=== PATIENT | female | born 1955 | race African-American/Black ===

== ENCOUNTER 2017-01-07 12:32 | Emergency (ER) | payer OTHER ==
--- NOTE | 2017-01-07 12:48 | DR.GENAD ---
HPI - PCP Primary Care Physician: fan - HPI Comment HPI Comment: HAVING PROBLEM AMBULATING DUE TO PAIN. - Complaint/Symptoms Chief Complaint Doctors Comments: RIGHT KNEE PAIN AND BODY ACHES FOR FEW DAYS. WORSE TODAY. HERE VIA EMS. TOOK HOME MEDS BUT NOT HELPING. NO TRAUMA. HISTORY ARTHRITIS. Chief Complaint:: patient stated she called ems due to chills, body aches, and right knee pain for several days Self Treatment fo Chief Complaint: dr turner stated she had arthritis - Nurses notes reviewed Nurses Notes Review: Yes - Source History Provided: Patient - Mode of Arrival Mode of Arrival: EMS - Timing Onset of Chief Complaint: 01/04/17 Came on: Suddenly - Duration Duration: Constant Duration: Days - Severity Severity: Moderate PMH - PMH Past Medical History: Yes Past Medical History: Arthritis, Asthma, Diabetes, Hypertension Past Surgical History: Yes Surgical History: Cholecystectomy, Hysterectomy, Ortho Surgery - Family History History of Family Medical Conditions: Yes Family Medical History: Heart Failure, Hypertension - Social History Does patient currently use any type of tobacco product: Yes Have you used tobacco products in the last 12 months: Yes Type of Tobacco Use: Cigarettes How many years tobacco product used: 30 Does any household member use tobacco: No Alcohol Use: None Do you use any recreational Drugs:: No Lives With: Family Lives Where: Home - infectious screening In the last 2 months have you had wt loss of >10#?: NO Have you had fever, night sweats or hemotysis?: No Have you traveled outside the country in the last 6 months?: No Isolation: Standard ROS - Review of Systems Constitutional: No Symptoms Reported Eyes: No Symptoms Reported ENTM: No Symptoms Reported Respiratoy: No Symptoms Reported Cardiovascular: No Symptoms Reported Gastrointestinal/Abdominal: No Symptoms Reported Genitourinary: No Symptoms Reported Neurological: Problems Walking Musculoskeletal: Back Pain, Joint Pain, Joint Swelling, Muscle Pain, Right, Knee Integumentary: No Symptoms Reported Hematologic/Lymphatic: No Symptoms Reported Endocrine: No Symptoms Reported All Other Systems: Reviewed and Negative PE - Vital Signs Vitals: Temperature 97.9 F Pulse Rate 82 Respiratory Rate 16 Blood Pressure [Left Arm] 154/75 Blood Pressure [Right Arm] 152/78 Blood Pressure 100/68 O2 Sat by Pulse Oximetry 100 - General Limitations: No Limitations General Appearance: Alert - Head Head Exam: Normal Inspection - Eyes Eye exam: Normal Appearance - ENT ENT Exam: Normal External Ear Exam External Ear Exam: Normal External Inspection TM/Canal Exam: Bilateral Normal Nose Exam: Nasal Deviation Throat Exam: Normal Inspection - Neck Neck Exam: Normal Inspection - Chest Chest Inspection: Symmetric Chest Wall Rise - Respiratory Respiratory Exam: Normal Lung Sounds Bilat Respiratory Exam: Bilateral Clear to Auscultation - Cardiovascular Cardiovascular Exam: Regular Rate, Normal Rhythm, Normal Heart Sounds - Abdominal Exam Abdominal Exam: Normal Bowel Sounds, Soft. negative: Tenderness - Extremities Extremities Exam: Tenderness (RIGHT KNEE), Joint Swelling (RIGHT KNEE) - Back Back Exam: Paraspinal Tenderness - Neurologic Neurological Exam: Alert, Oriented X3 - Skin Skin Exam: Normal Color MDM - Differential Diagnosis Differential Diagnosis: RIGHT KNEE PAIN, ARTHRITIS, STRAIN, SPRAIN, FRACTURE Course - Treatment Treatment: SEE ORDERS - Reevaluation 1st: Improved (IMPROVE WITH IM PAIN MEDS.) - Education/Counseling Education/Counseling: Patient, Education Educated On: Treatment, Diagnosis, Needs for Follow Up ROR - XRAY XRAY Interpreted by: Radiologist XRAY Findings: REPORT DISCUSS WITH PATIENT. - Diagnosis Discharge Problem: Arthritis Right knee pain Qualifiers: Chronicity: acute Qualified Code(s): M25.561 - Pain in right knee Degenerative arthritis Qualifiers: Osteoarthritis location: multiple joints Osteoarthritis type: unspecified Qualified Code(s): M15.9 - Polyosteoarthritis, unspecified - Discharge Plan Disposition: 01 HOME, SELF-CARE Condition: Stable Prescriptions: Tramadol HCl 50 mg PO Q8H PRN #15 tab PRN Reason: Pain - Follow ups/Referrals Follow ups/Referrals: Ky TURNER [Primary Care Provider] - 3 days - Instructions Instructions: Knee Pain, [id number], Arthritis Additional Instructions: RETURN TO ED IF WORSE.
[2017-01-07] MEDS ORDERED: NORFLEX INJ IM ONE (12:49)
[2017-01-07] MEDS ORDERED: ZOFRAN INJ 4 MG VIAL IVP ONE (12:50)
[2017-01-07] MEDS ORDERED: MORPHINE SULFATE INJ 4 MG IVP ONE (12:50)
[2017-01-07] MEDS ORDERED: ZOFRAN INJ 4 MG VIAL ONE (12:55)
[2017-01-07] MEDS ORDERED: MORPHINE SULFATE INJ 4 MG ONE (12:56)
[2017-01-07] MEDS ORDERED: NORFLEX INJ ONE (12:56)
[2017-01-07 13:13] VITALS: BP 100/68; BMI 26.1
--- NOTE | 2017-01-07 14:55 | RAD ---
HISTORY: Right knee pain. Complete radiographic series of the right knee joint. Findings: Examination of the knee joint demonstrate no evidence for acute fracture or dislocation. The medial and lateral tibiofemoral compartments demonstrate moderate to severe joint space narrowing and oste ophyte formation; most severe in the medial knee compartment. The findings are compatible with moder ate to severe degenerative joint disease. The lateral radiograph demonstrates trace suprapatellar j oint fluid. Patellofemoral compartment also shows moderate to severe DJD with chondromalacia isabelleell a. There is mild soft tissue swelling about the knee joint without underlying bony injury or fractur e seen. No destructive lytic bony lesions are seen. IMPRESSION: Moderate to severe right knee joint tricompartmental osteoarthritis, most severe medially, with adva nced central chondromalacia patella. No evidence for an acute fracture, subluxation, or lytic bony l esion. Trace knee joint fluid. Meniscal chondrocalcinosis. Reported By:
== END 2017-01-07 14:49 | disposition home or self-care (01) ==
LOC: ER 12:32
DX: M19.90 Unspecified osteoarthritis, unspecified site (principal); M25.561 Pain in right knee; M15.9 Polyosteoarthritis, unspecified
CPT/HCPCS: 73560; 96365; 96372; 96374; 96375; 99282; 99283; J2270; J2360; J2405

== ENCOUNTER 2017-02-19 13:14 | Emergency (ER) | payer OTHER ==
[2017-02-19 13:29] VITALS: BP 137/74; BMI 26.6
--- NOTE | 2017-02-19 13:46 | DR.GENAD ---
HPI - PCP Primary Care Physician: fan Gonzalez HPI Comment HPI Comment: PAIN AND SWELLING STARTED YESTERDAY. NO FEVER. WORSE TODAY. - Complaint/Symptoms Chief Complaint Doctors Comments: RIGHT FACIAL SWELLING AND PAIN. UPPER RIGHT GUM IS HURTING. Chief Complaint:: right side of face swollen since yesterday "maybe a bad tooth " - Nurses notes reviewed Nurses Notes Review: Yes - Source History Provided: Patient - Mode of Arrival Mode of Arrival: Ambulatory - Timing Onset of Chief Complaint: 02/18/17 Came on: Suddenly - Duration Duration: Constant Duration: Days - Severity Severity: Moderate PMH - PMH Past Medical History: Yes Past Medical History: Arthritis, Asthma, Diabetes, Hypertension Past Surgical History: Yes Surgical History: Cholecystectomy, Hysterectomy, Ortho Surgery - Family History History of Family Medical Conditions: Yes Family Medical History: Heart Failure, Hypertension - Social History Does patient currently use any type of tobacco product: Yes Have you used tobacco products in the last 12 months: Yes Type of Tobacco Use: Cigarettes How many years tobacco product used: 20 Does any household member use tobacco: No Alcohol Use: None Do you use any recreational Drugs:: No Lives With: Family Lives Where: Home - infectious screening In the last 2 months have you had wt loss of >10#?: NO Have you had fever, night sweats or hemotysis?: No Have you traveled outside the country in the last 6 months?: No Isolation: Standard ROS - Review of Systems Constitutional: Weakness. negative: Chills, Fever Eyes: No Symptoms Reported. negative: Eye Pain, Discharge ENTM: No Symptoms Reported, Mouth Pain, Mouth Swelling (RIGHT FACE SWELLING.). negative: Ear Pain, Nose Discharge, Nose Congestion Respiratoy: No Symptoms Reported. negative: Productive Cough, Non-Productive Cough, Short of Breath, Wheezing, Hemoptysis Cardiovascular: No Symptoms Reported. negative: Chest Pain Gastrointestinal/Abdominal: No Symptoms Reported. negative: Abdominal Pain, Diarrhea, Nausea, Vomiting Genitourinary: No Symptoms Reported. negative: Dysuria, Frequency, Hematuria Neurological: Headache, Weakness. negative: Dizziness Musculoskeletal: Other (RIGHT FACE PAIN AND SWELLING.) Integumentary: Other (RIGHT FACE SWELLING AND REDNESS) Hematologic/Lymphatic: Easy Bruising Endocrine: No Symptoms Reported All Other Systems: Reviewed and Negative PE - Vital Signs Vitals: Temperature 98.6 F Pulse Rate 87 Respiratory Rate 18 Blood Pressure [Left Arm] 154/75 Blood Pressure [Right Arm] 152/78 Blood Pressure 137/74 O2 Sat by Pulse Oximetry 100 - General Limitations: No Limitations General Appearance: Alert - Head Head Exam: Other (RIGHT FACE SWOLLEN, RED AND TENDER.) - Eyes Eye exam: Normal Appearance, PERRL, EOMI. negative: Scleral Icterus, Conjunctival Injection, Periorbital Swelling, Periorbital Tenderness - ENT ENT Exam: Normal External Ear Exam External Ear Exam: Normal External Inspection TM/Canal Exam: Bilateral Normal Nose Exam: Sinus Tenderness (RIGHT MAXILLAR SINUS TENDER.) Mouth Exam: Other (RIGHT UPPER GUM INFLAME. MULTIPLE CARIES. ). negative: Trismus Throat Exam: Normal Inspection - Neck Neck Exam: Trachea Midline. negative: Tenderness, Meningismus, Lymphadenopathy - Chest Chest Inspection: Symmetric Chest Wall Rise - Respiratory Respiratory Exam: Normal Lung Sounds Bilat Respiratory Exam: Bilateral Clear to Auscultation - Cardiovascular Cardiovascular Exam: Regular Rate, Normal Rhythm, Normal Heart Sounds - Abdominal Exam Abdominal Exam: Normal Bowel Sounds, Soft. negative: Tenderness - Extremities Extremities Exam: Normal Inspection - Back Back Exam: Normal Inspection - Neurologic Neurological Exam: Alert, Oriented X3 - Psychiatric Psychiatric Exam: Normal Affect, Normal Mood - Skin Skin Exam: Erythema MDM - Differential Diagnosis Differential Diagnosis: RT FACIAL CELLULITIS, RT MAXILLARY SINUSITIS, GINGIVITIS Course - Treatment Treatment: SEE ORDERS.IM TORADOL AND ROCEPHINE IN ED. - Reevaluation 1st: Improved (PAIN DECREASING.) - Education/Counseling Education/Counseling: Patient, Education Educated On: Treatment, Diagnosis, Needs for Follow Up - Diagnosis Discharge Problem: Facial cellulitis, Gingivitis Maxillary sinusitis Qualifiers: Chronicity: acute Recurrence: not specified as recurrent Qualified Code(s): J01.00 - Acute maxillary sinusitis, unspecified - Discharge Plan Disposition: HOME, SELF-CARE Condition: Stable Prescriptions: Amoxicillin [Amoxil 875 mg] 875 mg PO BID #20 tab Tramadol HCl 50 mg PO Q8H PRN #15 tab PRN Reason: Pain - Follow ups/Referrals Follow ups/Referrals: Ky TURNER [Primary Care Provider] - 2 days - Instructions Instructions: Cellulitis, Sinusitis, Adult, Gingivitis, [id number] Additional Instructions: RETURN TO ED IF WORSE.
[2017-02-19] MEDS ORDERED: ROCEPHIN VIAL 1 GM IM ONE (13:47)
[2017-02-19] MEDS ORDERED: TORADOL 60 MG VIAL IM ONE (13:47)
[2017-02-19] MEDS ORDERED: ROCEPHIN VIAL 1 GM ONE (14:04)
[2017-02-19] MEDS ORDERED: TORADOL 60 MG VIAL ONE (14:04)
[2017-02-19] MEDS ORDERED: XYLOCAINE 1 % (PLAIN) ONE (14:05)
== END 2017-02-19 14:34 | disposition home or self-care (01) ==
LOC: ER 13:22
DX: L03.211 Cellulitis of face (principal); J01.80 Other acute sinusitis; K05.10 Chronic gingivitis, plaque induced
CPT/HCPCS: 96372; 99282; J0696; J1885; J2001

== ENCOUNTER 2017-03-06 14:19 | Emergency (ER) | payer OTHER ==
[2017-03-06 14:23] VITALS: BMI 33.7
--- NOTE | 2017-03-06 15:45 | DR.GENAD ---
HPI - PCP Primary Care Physician: Niya - HPI Comment HPI Comment: HAPPEN BEFORE COMING TO ED. HAVING LEFT HIP PAIN AND HEADACHE. DENIES CHEST PAIN. NO FEVER. - Complaint/Symptoms Chief Complaint Doctors Comments: FELL ON KITCHING FLOOR AFTER SHE BLACK OUT. Chief Complaint:: Pt states she fell in the kitchen after blacking out and is c/ o right hip pain - Nurses notes reviewed Nurses Notes Review: Yes - Source History Provided: Patient - Mode of Arrival Mode of Arrival: Wheelchair - Timing Onset of Chief Complaint: 03/06/17 Came on: Suddenly - Duration Duration: Constant Duration: Minutes - Severity Severity: Moderate PMH - PMH Past Medical History: Yes Past Medical History: Arthritis, Asthma, Diabetes, Hypertension Past Surgical History: Yes Surgical History: Cholecystectomy, Hysterectomy, Ortho Surgery - Family History History of Family Medical Conditions: Yes Family Medical History: Heart Failure, Hypertension - Social History Does patient currently use any type of tobacco product: Yes Have you used tobacco products in the last 12 months: Yes Type of Tobacco Use: Cigarettes Does any household member use tobacco: Yes Alcohol Use: None Do you use any recreational Drugs:: No Lives With: Family Lives Where: Home - infectious screening In the last 2 months have you had wt loss of >10#?: NO Have you had fever, night sweats or hemotysis?: No Have you traveled outside the country in the last 6 months?: No Isolation: Standard ROS - Review of Systems Constitutional: Weakness, Fatigue. negative: Chills, Fever, Loss of Appetite Eyes: Blurred Vision. negative: Eye Pain, Discharge, Photophobia, Diplopia ENTM: No Symptoms Reported. negative: Ear Pain, Nose Discharge, Nose Congestion , Throat Pain Respiratoy: No Symptoms Reported. negative: Productive Cough, Non-Productive Cough, Short of Breath, Wheezing, Hemoptysis Cardiovascular: Syncope. negative: Chest Pain, Edema, Palpitations Gastrointestinal/Abdominal: No Symptoms Reported. negative: Abdominal Pain, Constipation, Diarrhea, Nausea Genitourinary: No Symptoms Reported. negative: Dysuria, Frequency, Hematuria Neurological: Headache, Weakness, Dizziness Musculoskeletal: Muscle Pain Integumentary: No Symptoms Reported Endocrine: negative: Increased Thirst, Increased Urine Psychiatric: Hallucinations All Other Systems: Reviewed and Negative PE - Vital Signs Vitals: Temperature 98.1 F Pulse Rate [Left Brachial] 85 Pulse Rate 91 Respiratory Rate 18 Blood Pressure [Left Arm] 137/80 Blood Pressure [Right Arm] 152/78 Blood Pressure 93/63 O2 Sat by Pulse Oximetry 99 - General Limitations: No Limitations General Appearance: Alert - Head Head Exam: Normal Inspection - Eyes Eye exam: Normal Appearance - ENT ENT Exam: Normal External Ear Exam External Ear Exam: Normal External Inspection TM/Canal Exam: Bilateral Normal Nose Exam: Normal Nose Exam Mouth Exam: Normal Inspection Throat Exam: Normal Inspection - Neck Neck Exam: Trachea Midline. negative: Tenderness, Meningismus, Lymphadenopathy - Chest Chest Inspection: Symmetric Chest Wall Rise - Respiratory Respiratory Exam: negative: Chest Wall Tenderness, Respiratory Distress Respiratory Exam: Bilateral Rhonchi, Lower Rhonchi - Cardiovascular Cardiovascular Exam: Regular Rate, Normal Rhythm, Normal Heart Sounds - Abdominal Exam Abdominal Exam: Normal Bowel Sounds, Soft - Extremities Extremities Exam: Tenderness (RIGHT HIP TENDER.) - Neurologic Neurological Exam: Alert, Oriented X3 - Psychiatric Psychiatric Exam: Normal Affect, Normal Mood - Skin Skin Exam: Normal Color MDM - Additional Information Additional Information Obtained From: Family - Differential Diagnosis Differential Diagnosis: SYNCOPAL EPISODE, RIGHT HIP PAIN Course - Treatment Treatment: SEE ORDERS - Education/Counseling Education/Counseling: Patient, Family, Education Educated On: Diagnosis, Needs for Follow Up ROR - Labs Reviewed Laboratory Results Reviewed?: Yes Result Diagrams: 03/06/17 15:55 03/06/17 15:55 Laboratory: WBC 5.3 X10^3/uL (3.6-10.0) 03/06/17 15:55 RBC 3.91 X10^6/uL (3.5-5.4) 03/06/17 15:55 Hgb 12.3 g/dL (12.0-16.0) 03/06/17 15:55 Hct 37.0 % (36.0-47.0) 03/06/17 15:55 MCV 94.8 fL (80.0-100.0) 03/06/17 15:55 MCH 31.5 pg (27.0-34.0) 03/06/17 15:55 MCHC 33.2 g/dL (33.0-35.0) 03/06/17 15:55 RDW 13.7 % (11.6-16.5) 03/06/17 15:55 Plt Count 314 X10^3/uL (150.0-450.0) 03/06/17 15:55 MPV 9.0 fL (7.4-11.0) 03/06/17 15:55 Neut % 36.8 % (42.0-75.0) L 03/06/17 15:55 Lymph % 51.9 % (21.0-51.0) H 03/06/17 15:55 Cloud % 6.1 % (0.0-13.0) 03/06/17 15:55 Eos % 4.4 % (0.9-2.9) H 03/06/17 15:55 Baso % 0.8 % (0.2-1.0) 03/06/17 15:55 Neut # 1.9 x10^3/uL (2.2-4.8) L 03/06/17 15:55 Lymph # 2.7 X10^3/uL (1.3-2.9) 03/06/17 15:55 Cloud # 0.3 x10^3/uL (0.3-0.8) 03/06/17 15:55 Eos # 0.2 x10^3/uL (0.0-0.2) 03/06/17 15:55 Baso # 0.0 X10^3/uL (0.0-0.1) 03/06/17 15:55 Absolute Nucleated RBC 0.1 /100WBC 03/06/17 15:55 Sodium 142 mmol/L (136-145) 03/06/17 15:55 Corrected Sodium TNP 03/06/17 15:55 Potassium 3.5 mmol/L (3.5-5.1) 03/06/17 15:55 Chloride 106 mmol/L (98-107) 03/06/17 15:55 Carbon Dioxide 23.7 mmol/L (21-32) 03/06/17 15:55 BUN 20 mg/dL (7-18) H 03/06/17 15:55 Creatinine 1.83 mg/dL (0.55-1.02) H 03/06/17 15:55 Est GFR (MDRD) Af Amer 36 (>60) L 03/06/17 15:55 Est GFR (MDRD) Non-Af 30 (>60) L 03/06/17 15:55 Glucose 80 mg/dL (65-99) 03/06/17 15:55 Calcium 9.3 mg/dL (8.5-10.1) 03/06/17 15:55 Corrected Calcium TNP 03/06/17 15:55 Total Bilirubin 0.20 mg/dL (0.2-1.0) 03/06/17 15:55 AST 18 Units/L (15-37) 03/06/17 15:55 ALT 25 Units/L (12-78) 03/06/17 15:55 Alkaline Phosphatase 49 Units/L (46-116) 03/06/17 15:55 Creatine Kinase 54 Units/L (26-192) 03/06/17 15:55 CK-MB (CK-2) < 1.0 ng/mL (0-4.0) 03/06/17 15:55 CK/CKMB % Calc 1.9 % (<4) 03/06/17 15:55 Troponin I < 0.02 ng/mL (0-1.5) 03/06/17 15:55 Total Protein 8.3 g/dL (6.4-8.2) H 03/06/17 15:55 Albumin 4.0 g/dL (3.4-5.0) 03/06/17 15:55 Globulin 4.3 g/dL (2.5-4.5) 03/06/17 15:55 Albumin/Globulin Ratio 0.9 Ratio (1.1-2.1) L 03/06/17 15:55 Specimen Type Clean catch urine 03/06/17 16:47 Urine Color Yellow (YELLOW) 03/06/17 16:47 Urine Appearance Slightly hazy (CLEAR) 03/06/17 16:47 Urine pH 6.0 (5.0 - 8.0) 03/06/17 16:47 Ur Specific [place] 1.015 (1.000-1.030) 03/06/17 16:47 Urine Protein 2+ (NEGATIVE) 03/06/17 16:47 Urine Glucose (UA) Negative (NEGATIVE) 03/06/17 16:47 Urine Ketones Negative (NEGATIVE) 03/06/17 16:47 Urine Occult Blood 1+ (NEGATIVE) 03/06/17 16:47 Urine Nitrite Negative (NEGATIVE) 03/06/17 16:47 Urine Bilirubin Negative (NEGATIVE) 05/22/17 16:47 Urine Urobilinogen Normal (NORMAL) 03/06/17 16:47 Ur Leukocyte Esterase Negative (NEGATIVE) 03/06/17 16:47 Urine RBC Rare /HPF (NEGATIVE) 03/06/17 16:47 Urine WBC 0-2 /HPF (NEGATIVE) 03/06/17 16:47 Ur Squamous Epith Cells Moderate /HPF (NEGATIVE) 03/06/17 16:47 Ur Renal Epithelial Cell Few /HPF (NEGATIVE) 03/06/17 16:47 Urine Bacteria Trace /HPF (NEGATIVE) 03/06/17 16:47 Hyaline Casts Few /LPF (NEGATIVE) 03/06/17 16:47 Fine Granular Casts Few /LPF (NEGATIVE) 03/06/17 16:47 Ur Culture Indicated? No/not indicated 03/06/17 16:47 Urine Opiates Screen Positive (NEG=<300) A 03/06/17 16:47 Urine Methadone Screen Negative (NEG=<300) 03/06/17 16:47 Ur Barbiturates Screen Negative (NEG=<200) 03/06/17 16:47 Ur Phencyclidine Scrn Negative (NEG=<25) 03/06/17 16:47 Ur Amphetamines Screen Negative (NEG=<1000) 03/06/17 16:47 U Benzodiazepines Scrn Negative (NEG=<200) 03/06/17 16:47 Urine Cocaine Screen Negative (NEG=<300) 03/06/17 16:47 U Marijuana (THC) Screen Negative (NEG=<50) 03/06/17 16:47 - XRAY XRAY Interpreted by: Radiologist XRAY Findings: REPORT DISCUSS WITH PATIENT. - EKG Rhythm: NSR (EKG NOTED) - Diagnosis Discharge Problem: Right hip pain Syncopal episodes Qualifiers: Syncope type: unspecified Qualified Code(s): R55 - Syncope and collapse - Discharge Plan Condition: Stable - Follow ups/Referrals Follow ups/Referrals: Ky TURNER [Primary Care Provider] - 3 days - Instructions Instructions: Syncope, [id number], Hip Pain Additional Instructions: RETURN TO ED IF WORSE. CONTINUE WITH MEDS AT HOME FOR PAIN.
[2017-03-06 16:10] LABS: BASOPHILS % (AUTO) 0.8 % (0.2-1.0); EOSINOPHILS # (AUTO) 0.2 x10^3/uL (0.0-0.2); EOSINOPHILS % (AUTO) 4.4 % (0.9-2.9); HEMOGLOBIN 12.3 g/dL (12.0-16.0); LYMPHOCYTES # (AUTO) 2.7 X10^3/uL (1.3-2.9); LYMPHOCYTES % (AUTO) 51.9 % (21.0-51.0); MEAN CORPUSCULAR HEMOGLOBIN 31.5 pg (27.0-34.0); MEAN CORPUSCULAR HGB CONC 33.2 g/dL (33.0-35.0); MEAN CORPUSCULAR VOLUME 94.8 fL (80.0-100.0); MONOCYTES # (AUTO) 0.3 x10^3/uL (0.3-0.8); MONOCYTES % (AUTO) 6.1 % (0.0-13.0); NEUTROPHILS # (AUTO) 1.9 x10^3/uL (2.2-4.8); NEUTROPHILS % (AUTO) 36.8 % (42.0-75.0); PLATELET COUNT 314 X10^3/uL (150.0-450.0); RED BLOOD COUNT 3.91 X10^6/uL (3.5-5.4); RED CELL DISTRIBUTION WIDTH 13.7 % (11.6-16.5); WHITE BLOOD COUNT 5.3 X10^3/uL (3.6-10.0)
--- NOTE | 2017-03-06 16:32 | CT ---
HISTORY: Altered mental status. Study: CT brain without contrast. Dose reduction techniques including Automated Exposure Control (A EC) and adjustment of mA and kV were utilized. Comparison: None. Technique: Multiple axial images of the brain were obtained from the skull base to the vertex without administr ation of IV contrast. Findings: No acute intraparenchymal hemorrhage or mass can be identified. No extra-axial fluid collections ar e seen. No alteration in the attenuation of the brain parenchyma can be identified to suggest acute or subacute ischemic change. The ventricular system is symmetric and nondilated. There is moderat e mucoperiosteal thickening involving the included paranasal sinuses bilaterally. 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 IMPRESSION: 1. No acute intracranial process can be identified. If strong clinical suspicion for acute intracra nial abnormality remains, then MR of the brain should be considered for further evaluation. 2. Moderate paranasal mucosal sinus disease. Reported By:
--- NOTE | 2017-03-06 16:35 | RAD ---
Examination: Chest x-ray. Clinical history: Chest pain. Technique: A single portable AP view of the chest was obtained. Comparison: 06/17/2016. Findings: The cardiac and mediastinal contours are within normal limits. No pneumothorax or pleural effusion is noted. The lungs are clear. Degenerative changes are noted in the spine. No acute osseous abnormality is noted. Surgical clips are seen overlying the right upper abdomen. Impression: 1. No acute disease. Reported By:
[2017-03-06 16:55] LABS: BLOOD UREA NITROGEN 20 mg/dL (7-18); CALCIUM 9.3 mg/dL (8.5-10.1); CARBON DIOXIDE 23.7 mmol/L (21-32); CHLORIDE 106 mmol/L (98-107); CREATININE 1.83 mg/dL (0.55-1.02); GLUCOSE 80 mg/dL (65-99); SODIUM 142 mmol/L (136-145); TROPONIN I < 0.02 ng/mL (0-1.5); eGFR BLACK RACES 36 (>60); eGFR NON BLACK RACES 30 (>60)
[2017-03-06 16:56] LABS: ALANINE AMINOTRANSFERASE 25 Units/L (12-78); ALKALINE PHOSPHATASE 49 Units/L (46-116); ASPARTATE AMINO TRANSFERASE 18 Units/L (15-37); CKMB % 1.9 % (<4); CREATINE KINASE 54 Units/L (26-192); CREATINE KINASE MB < 1.0 ng/mL (0-4.0); TOTAL PROTEIN 8.3 g/dL (6.4-8.2)
[2017-03-06 17:21] LABS: BILIRUBIN,URINE NEGATIVE (NEGATIVE); BLOOD/HEMOGLOBIN,URINE 1+ (NEGATIVE); GLUCOSE, URINE NEGATIVE (NEGATIVE); KETONES,URINE NEGATIVE (NEGATIVE); LEUKOCYTE ESTERASE ,URINE NEGATIVE (NEGATIVE); NITRITES,URINE NEGATIVE (NEGATIVE); PROTEIN,URINE 2+ (NEGATIVE); UROBILINOGEN,URINE NORMAL (NORMAL)
[2017-03-06 17:33] LABS: APPEARANCE,URINE SLIGHTLY HAZY (CLEAR); BACTERIA,URINE TRACE /HPF (NEGATIVE); COLOR,URINE YELLOW (YELLOW); RBC,URINE RARE /HPF (NEGATIVE); SQUAMOUS EPITHELIAL CELL,UR MODERATE /HPF (NEGATIVE)
[2017-03-06 17:34] LABS: FINE GRANULAR CASTS,URINE FEW /LPF (NEGATIVE); HYALINE CASTS, URINE FEW /LPF (NEGATIVE); RENAL EPITHELIAL CELLS,URINE FEW /HPF (NEGATIVE)
[2017-03-06 18:35] VITALS: BP 137/80
--- NOTE | 2017-03-06 18:58 | RAD ---
Two views of the right hip Indication: Right hip pain after passing out Findings: No acute fracture or dislocation within the right hip. There is mild degenerative change w ithin the right femoral acetabular joint along with enthesopathic change of the right greater trocha nter. Pubic symphysis and SI joints are intact. Impression: Mild femoral acetabular degenerative change enthesopathic change of the greater trochant er without acute fracture or dislocation within the right hip. Reported By:
[2017-03-06] MEDS ORDERED: TYLENOL 325 MG TAB PO ONE ×2 (19:13→19:15)
== END 2017-03-06 19:15 | disposition home or self-care (01) ==
LOC: ER 14:19
DX: R55 Syncope and collapse (principal); M25.551 Pain in right hip; W19.XXXA Unspecified fall, initial encounter; Y92.9 Unspecified place or not applicable
CPT/HCPCS: 36415; 70450; 71010; 73501; 80053; 80307; 81001; 82550; 82553; 84484; 85025; 93005; 93010; 99282; 99283; G0434

== ENCOUNTER 2017-10-06 22:56 | Emergency (ER) | payer OTHER ==
[2017-10-06 23:05] VITALS: BMI 27.9
[2017-10-06 23:16] VITALS: BP 214/108
[2017-10-06] MEDS ORDERED: ULTRAM PO ONE (23:37)
--- NOTE | 2017-10-06 23:41 | DR.GENAD ---
HPI - PCP Primary Care Physician: YUE - HPI Comment HPI Comment: Once of toothache this ache evening. She has a lot of "dry sockets " she states and has and appt. with a local dentist for next week. She denies fever - Complaint/Symptoms Chief Complaint:: TOOTHACHE, RT SIDE, STARTED APPROX 3 HOURS AGO; TOOTH IS BROKEN Self Treatment fo Chief Complaint: LORCET AND NEURONTIN - Nurses notes reviewed Nurses Notes Review: Yes - Source History Provided: Patient - Mode of Arrival Mode of Arrival: Ambulatory - Timing Onset of Chief Complaint: 10/06/17 PMH - PMH Past Medical History: Yes Past Medical History: COPD, Hypertension Past Surgical History: Yes Surgical History: Cholecystectomy, Hysterectomy Past Surgical History Comment: LEFT KNEE REPLACEMENT; RIGHT KNEE REPLACEMENT - Family History History of Family Medical Conditions: No Family Medical History: Heart Failure, Hypertension - Social History Alcohol Use: None Do you use any recreational Drugs:: No Lives With: Alone Lives Where: Home - infectious screening In the last 2 months have you had wt loss of >10#?: NO Have you had fever, night sweats or hemotysis?: No Have you traveled outside the country in the last 6 months?: No Isolation: Standard ROS - Review of Systems Constitutional: No Symptoms Reported Eyes: No Symptoms Reported ENTM: Mouth Pain (on right lower tooth) Respiratoy: No Symptoms Reported Cardiovascular: No Symptoms Reported Gastrointestinal/Abdominal: No Symptoms Reported Genitourinary: No Symptoms Reported Neurological: No Symptoms Reported Musculoskeletal: No Symptoms Reported Integumentary: No Symptoms Reported Hematologic/Lymphatic: No Symptoms Reported Endocrine: No Symptoms Reported Psychiatric: No Symptoms Reported All Other Systems: Reviewed and Negative PE - Vital Signs Vitals: Temperature 98.7 F Pulse Rate [Right Brachial] 113 Respiratory Rate 24 Blood Pressure [Left Arm] 137/80 Blood Pressure [Right Arm] 214/108 Blood Pressure 137/80 O2 Sat by Pulse Oximetry 97 - General Limitations: No Limitations General Appearance: Alert, In No Apparent Distress - Head Head Exam: Normal Inspection - Eyes Eye exam: Normal Appearance - ENT ENT Exam: Normal External Ear Exam, Mucous Membranes Moist, Mucous Membranes Dry, TM's Normal Bilaterally, Other (teeth decay on right lower jaw incissor with asociated mild gingivitis. ) External Ear Exam: Normal External Inspection Nose Exam: Normal Nose Exam - Neck Neck Exam: Normal Inspection, Full ROM, Trachea Midline - Chest Chest Inspection: Normal Inspection, Symmetric Chest Wall Rise - Respiratory Respiratory Exam: Normal Lung Sounds Bilat - Cardiovascular Cardiovascular Exam: Regular Rate, Normal Rhythm - Abdominal Exam Abdominal Exam: Normal Inspection, Normal Bowel Sounds, Soft - Extremities Extremities Exam: Normal Inspection, Full ROM - Back Back Exam: Normal Inspection - Neurologic Neurological Exam: Alert, Oriented X3, CN II-XII Intact - Psychiatric Psychiatric Exam: Normal Affect, Normal Mood - Skin Skin Exam: Warm, Dry, Intact, Normal Color - Diagnosis Discharge Problem: Decay, teeth, Gingivitis - Discharge Plan Disposition: HOME, SELF-CARE Condition: Stable - Follow ups/Referrals Follow ups/Referrals: Ky TURNER [Primary Care Provider] - 3 days - Instructions
[2017-10-06] MEDS ORDERED: AMOXIL CAP 500 MG PO ONE ×2 (23:46→23:51)
[2017-10-06] MEDS ORDERED: ULTRAM ONE (23:52)
== END 2017-10-07 | disposition home or self-care (01) ==
LOC: ER 23:08
DX: K05.10 Chronic gingivitis, plaque induced (principal); K02.9 Dental caries, unspecified
CPT/HCPCS: 99282

== ENCOUNTER 2017-12-01 19:56 | Emergency (ER) | payer OTHER ==
[2017-12-01 20:02] VITALS: BP 118/76; BMI 29.2
[2017-12-01] MEDS ORDERED: NUBAIN INJ 10 IM ONE (21:51)
--- NOTE | 2017-12-01 21:56 | DR.GENAD ---
HPI - PCP Primary Care Physician: fan - Complaint/Symptoms Chief Complaint:: toothache, earache - Source History Provided: Patient - Mode of Arrival Mode of Arrival: Ambulatory - Timing Onset of Chief Complaint: 11/30/17 PMH - PMH Past Medical History: Yes Past Medical History: Arthritis, COPD, Hypertension Past Surgical History: Yes Surgical History: Cholecystectomy, Hysterectomy, Ortho Surgery Past Surgical History Comment: left knee - Family History History of Family Medical Conditions: Yes Family Medical History: Heart Failure, Hypertension - Social History Does patient currently use any type of tobacco product: Yes Have you used tobacco products in the last 12 months: Yes Type of Tobacco Use: Cigarettes Does any household member use tobacco: No Alcohol Use: None Do you use any recreational Drugs:: No Lives With: Family Lives Where: Home - infectious screening In the last 2 months have you had wt loss of >10#?: NO Have you had fever, night sweats or hemotysis?: No Have you traveled outside the country in the last 6 months?: No Isolation: Standard PE - Vital Signs Vitals: Temperature 98.7 F Pulse Rate 89 Respiratory Rate 16 Blood Pressure [Left Arm] 137/80 Blood Pressure [Right Arm] 214/108 Blood Pressure 118/76 O2 Sat by Pulse Oximetry 100 - Discharge Plan Condition: Stable - Follow ups/Referrals Follow ups/Referrals: Ky TURNER [Primary Care Provider] - 3 days - Instructions
[2017-12-01] MEDS ORDERED: NUBAIN INJ 10 ONE (21:57)
== END 2017-12-01 22:20 | disposition home or self-care (01) ==
LOC: ER 20:16
DX: K08.89 Other specified disorders of teeth and supporting structures (principal)
CPT/HCPCS: 96372; 99282; J2300

== ENCOUNTER 2017-12-07 19:24 | Emergency (ER) | payer OTHER ==
[2017-12-07 19:33] VITALS: BP 172/81; BMI 27.4
--- NOTE | 2017-12-07 19:53 | DR.GENAD ---
HPI - PCP Primary Care Physician: YUE - HPI Comment HPI Comment: FEELING WORSE TONIGHT. - Complaint/Symptoms Chief Complaint Doctors Comments: COUGH, CONGESTION, FEVER AND BODYACHES TIMES ONE DAY. EMMANUELLE STARTED TODAY. Chief Complaint:: GARCIA ONSET YESTERDAY, BODYACHES TODAY, Self Treatment fo Chief Complaint: TOOK HER HOME MEDS RADHA BUNCH NO RELIEF, - Nurses notes reviewed Nurses Notes Review: Yes - Source History Provided: Patient - Mode of Arrival Mode of Arrival: Ambulatory - Timing Onset of Chief Complaint: 12/06/17 Came on: Suddenly - Duration Duration: Constant Duration: Days - Severity Severity: Moderate PMH - PMH Past Medical History: Yes Past Medical History: Arthritis, COPD, Hypertension Past Surgical History: Yes Surgical History: Cholecystectomy, Hysterectomy, Ortho Surgery - Family History History of Family Medical Conditions: Yes Family Medical History: Heart Failure, Hypertension - Social History Does patient currently use any type of tobacco product: Yes Have you used tobacco products in the last 12 months: Yes Type of Tobacco Use: Cigarettes Does any household member use tobacco: No Alcohol Use: None Do you use any recreational Drugs:: No Lives With: Family Lives Where: Home - infectious screening In the last 2 months have you had wt loss of >10#?: NO Have you had fever, night sweats or hemotysis?: No Have you traveled outside the country in the last 6 months?: No Isolation: Standard ROS - Review of Systems Constitutional: Fever, Weakness, Fatigue. negative: Chills Eyes: No Symptoms Reported ENTM: Nose Discharge, Nose Congestion, Throat Pain. negative: Ear Pain Respiratoy: Productive Cough. negative: Short of Breath, Wheezing, Hemoptysis Cardiovascular: No Symptoms Reported Gastrointestinal/Abdominal: No Symptoms Reported Genitourinary: No Symptoms Reported Neurological: Headache, Weakness, Dizziness Musculoskeletal: Muscle Pain Integumentary: No Symptoms Reported Hematologic/Lymphatic: No Symptoms Reported Endocrine: No Symptoms Reported All Other Systems: Reviewed and Negative PE - Vital Signs Vitals: Temperature 98.0 F Pulse Rate 90 Respiratory Rate 16 Blood Pressure [Left Arm] 137/80 Blood Pressure [Right Arm] 214/108 Blood Pressure 172/81 O2 Sat by Pulse Oximetry 99 - General Limitations: No Limitations General Appearance: Alert - Head Head Exam: Normal Inspection - Eyes Eye exam: Normal Appearance - ENT ENT Exam: Normal External Ear Exam External Ear Exam: Normal External Inspection TM/Canal Exam: Bilateral Bulging Nose Exam: Normal Nose Exam Mouth Exam: Normal Inspection Throat Exam: Tonsillar Erythema. negative: Tonsillomegaly, Tonsillar Exudate - Neck Neck Exam: Trachea Midline - Chest Chest Inspection: Symmetric Chest Wall Rise - Respiratory Respiratory Exam: Normal Lung Sounds Bilat Respiratory Exam: Bilateral Clear to Auscultation - Cardiovascular Cardiovascular Exam: Regular Rate, Normal Rhythm, Normal Heart Sounds - Abdominal Exam Abdominal Exam: Normal Bowel Sounds, Soft. negative: Tenderness - Extremities Extremities Exam: Normal Inspection - Back Back Exam: Normal Inspection - Neurologic Neurological Exam: Alert, Oriented X3 - Psychiatric Psychiatric Exam: Normal Affect, Normal Mood - Skin Skin Exam: Normal Color MDM - Differential Diagnosis Differential Diagnosis: SINUSITIS, BRONCHITIS, PNEUMONIA, INFLUENZA Course - Treatment Treatment: SEE ORDERS. - Education/Counseling Education/Counseling: Patient, Education Educated On: Treatment, Diagnosis, Needs for Follow Up ROR - Labs Reviewed Laboratory Results Reviewed?: Yes Laboratory: Influenza Type A (PCR) Negative (NEGATIVE) 12/07/17 19:39 Influenza Type B (PCR) Positive (NEGATIVE) A 12/07/17 19:39 - Diagnosis Discharge Problem: Influenza, Bronchitis Sinusitis Qualifiers: Sinusitis location: unspecified location Chronicity: acute Recurrence: not specified as recurrent Qualified Code(s): J01.90 - Acute sinusitis, unspecified - Discharge Plan Condition: Stable Prescriptions: Benzonatate [TESSALON PERLES *] 200 mg PO TID PRN #30 cap PRN Reason: Cough Cetirizine HCl [Zyrtec Tab 10 mg] 10 mg PO DAILY PRN #10 tab PRN Reason: Oseltamivir Phosphate [Tamiflu] 75 mg PO BID #10 cap - Follow ups/Referrals Follow ups/Referrals: Ky TURNER [Primary Care Provider] - 3 days - Instructions Instructions: Influenza, Adult, [id number], Sinusitis, Adult, [id number], Sinus Headache, [id number], Acute Bronchitis Additional Instructions: RETURN TO ED IF WORSE.
[2017-12-07] MEDS ORDERED: TORADOL 60 MG VIAL IM ONE (19:56)
[2017-12-07] MEDS ORDERED: TORADOL 60 MG VIAL ONE (19:58)
== END 2017-12-07 20:24 | disposition home or self-care (01) ==
LOC: ER 19:37
DX: J40 Bronchitis, not specified as acute or chronic (principal); J10.1 Influenza due to other identified influenza virus with other respiratory manifestations; J01.80 Other acute sinusitis; Z72.0 Tobacco use
CPT/HCPCS: 87502; 96372; 99282; 99283; J1885

== ENCOUNTER 2017-12-30 09:57 | Emergency (ER) | payer OTHER ==
[2017-12-30 10:07] VITALS: BP 125/68; BMI 28.8
[2017-12-30] MEDS ORDERED: TORADOL 60 MG VIAL ONE (10:58)
--- NOTE | 2017-12-30 10:58 | DR.GENAD ---
HPI - PCP Primary Care Physician: YUE - Complaint/Symptoms Chief Complaint Doctors Comments: Patient presents with complaint of left sided facial swelling and pain. She states that this started on yesterday. Denies fever or trauma Chief Complaint:: LEFT SIDE OF FACE SWOLLEN. C/O OF KNOT ON RIGH SIDE OF FACE - Source History Provided: Patient - Mode of Arrival Mode of Arrival: Ambulatory - Timing Onset of Chief Complaint: 12/29/17 PMH - PMH Past Medical History: Yes Past Medical History: Arthritis, COPD, Hypertension Past Surgical History: Yes Surgical History: Cholecystectomy, Hysterectomy, Ortho Surgery - Family History History of Family Medical Conditions: Yes Family Medical History: Heart Failure, Hypertension - Social History Does patient currently use any type of tobacco product: Yes Have you used tobacco products in the last 12 months: Yes Type of Tobacco Use: Cigarettes How many years tobacco product used: 35 Does any household member use tobacco: No Alcohol Use: None Do you use any recreational Drugs:: No Lives With: Family Lives Where: Home - infectious screening In the last 2 months have you had wt loss of >10#?: NO Have you had fever, night sweats or hemotysis?: No Have you traveled outside the country in the last 6 months?: No Isolation: Standard ROS - Review of Systems Eyes: No Symptoms Reported ENTM: No Symptoms Reported Respiratoy: No Symptoms Reported Cardiovascular: No Symptoms Reported Gastrointestinal/Abdominal: No Symptoms Reported Genitourinary: No Symptoms Reported Neurological: No Symptoms Reported Musculoskeletal: Other (left cheek swelling and tenderness) Integumentary: No Symptoms Reported Hematologic/Lymphatic: No Symptoms Reported Endocrine: No Symptoms Reported Psychiatric: No Symptoms Reported All Other Systems: Reviewed and Negative PE - Vital Signs Vitals: Temperature 97.8 F Pulse Rate 80 Respiratory Rate 18 Blood Pressure [Left Arm] 137/80 Blood Pressure [Right Arm] 214/108 Blood Pressure 125/68 O2 Sat by Pulse Oximetry 99 - General General Appearance: Alert, In No Apparent Distress - Head Head Exam: Normal Inspection, Atraumatic - Eyes Eye exam: Normal Appearance, PERRL, EOMI - ENT ENT Exam: Normal Exam, Normal Oropharynx External Ear Exam: Normal External Inspection TM/Canal Exam: Bilateral Normal Nose Exam: Normal Nose Exam, Sinus Tenderness (left maxillary) Mouth Exam: Normal Inspection Throat Exam: Normal Inspection - Neck Neck Exam: Normal Inspection - Chest Chest Inspection: Normal Inspection - Respiratory Respiratory Exam: Normal Lung Sounds Bilat Respiratory Exam: Bilateral Clear to Auscultation - Cardiovascular Cardiovascular Exam: Regular Rate - Abdominal Exam Abdominal Exam: Normal Inspection Abdominal Tenderness: negative: RUQ, RLQ, LUQ, LLQ, Epigastrium, Suprapubic, Diffuse, Mild, Moderate, Severe, Other - Extremities Extremities Exam: Normal Inspection - Back Back Exam: Normal Inspection - Neurologic Neurological Exam: Alert, Oriented X3, CN II-XII Intact - Psychiatric Psychiatric Exam: Normal Affect - Skin Skin Exam: Warm, Dry, Intact ROR - XRAY XRAY Interpreted by: Radiologist (CT Sinuses:Frontal sinuses are small. Mucosal thickening is present involving the ethmoid,maxillary and sphenoid sinuses bilaterally. No air fluid levels are seen. The bony nasal septum is midline. The ostiomeatal compleses are totally occluded by soft tissue bilaterally. No fracture is seen. Many teeth are missing. The teeth that are present are multi carious and broken. Periapical abscess formation is present involving maxillary teeth, 7,6,4 and 11 and mandibular teeth 19 and 30. No evidence of mandibular fracture is seen. There is soft tissue swelling present involving the upper and lower lip regions. No evidence fof soft tissue abscess or fluid collection is seen. The abscesses present involving mandibular teeth 19 and 30 have eroded through the buccal cortex regions bilaterally. Impression : Evidence of mandibular and maxillary periapical tooth abscesses. The abscesses involving mandibular teeth 19 and 30 have eroded through the buccal cortex regions bilaterally. Bilateral ethmoid,maxillary and sphenoid sinusitis, chronic in appearance. No air fluid levels are seen.) - Diagnosis Discharge Problem: Tooth abscess Pansinusitis Qualifiers: Chronicity: chronic Qualified Code(s): J32.4 - Chronic pansinusitis - Discharge Plan Condition: Stable - Follow ups/Referrals Follow ups/Referrals: Ky TURNER [Primary Care Provider] - 3 days - Instructions
[2017-12-30] MEDS ORDERED: MORPHINE SULFATE INJ 4 MG IM ONE (10:59)
[2017-12-30] MEDS ORDERED: MORPHINE SULFATE INJ 4 MG ONE ×3 (11:00→11:04)
--- NOTE | 2017-12-30 12:58 | CT ---
HISTORY: Maxillary tenderness and swelling Study: Noncontrast CT scan of the sinuses Comparison: No priors Technique: Non contrasted CT images of the paranasal sinuses are reviewed in axial, coronal and sagit [place] planes. Dose reduction techniques utilized automatic exposure control. Findings: Frontal sinuses are small. Mucosal thickening is present involving the ethmoid, maxillary and sphenoi d sinuses bilaterally. No air-fluid levels are seen. The bony nasal septum is midline. The ostiomeata l complexes are totally occluded by soft tissue bilaterally. No fracture is seen. Many teeth are miss ing. The teeth that are present are multi carious and broken. Periapical abscess formation is present involving maxillary teeth 7., 6, 4 and 11 and mandibular teeth 19 and 30. No evidence of mandibular fracture is seen. There is soft tissue swelling present involving the upper and lower lip regions. No evidence of soft tissue abscess or fluid collection is seen. The abscesses present involving mandibu lar teeth 19 and 30 have eroded through the buccal cortex regions bilaterally. IMPRESSION: Evidence of mandibular and maxillary periapical tooth abscesses. The abscesses involving mandibular t eeth 19 and 30 have eroded through the buccal cortex regions bilaterally. Bilateral ethmoid, maxillary and sphenoid sinusitis, chronic in appearance. No air-fluid levels are s een. Reported By:
[2017-12-30] MEDS ORDERED: ROCEPHIN VIAL 1 GM IM ONE (13:24)
[2017-12-30] MEDS ORDERED: ROCEPHIN VIAL 1 GM ONE (13:24)
[2017-12-30] MEDS ORDERED: XYLOCAINE 1 % (PLAIN) ONE (13:25)
[2017-12-30] MEDS ORDERED: TYLENOL #3 TAB (W/CODEINE) PO ONE ×2 (13:56→13:59)
== END 2017-12-30 14:01 | disposition home or self-care (01) ==
LOC: ER 10:20
DX: K04.7 Periapical abscess without sinus (principal); J32.4 Chronic pansinusitis
CPT/HCPCS: 70486; 96372; 99282; 99283; J0696; J1885; J2001; J2270

== ENCOUNTER 2022-06-11 15:04 | Inpatient (IN) ==
--- NOTE | 2022-06-11 15:23 | DR.DIZZY ---
HPI Time seen Time Seen by Provider: 06/11/22 15:22 Complaint Chief Complaint:: pt brought in by ems with bp of 74/42. pt is drowsy upon arrival but asnwers questions appropriately. pt states she only took her bp meds this am. pt denies taking any pain medication or anxiety medication. Source History Provided: Patient Mode of Arrival Mode of Arrival: EMS Timing Onset of Chief Complaint: 06/11/22 PMH PMH Past Medical History: Yes Past Medical History: Arthritis, COPD and Hypertension Past Surgical History: Yes Surgical History: Cholecystectomy, Hysterectomy and Ortho Surgery Family History History of Family Medical Conditions: Yes Family Medical History: Heart Failure and Hypertension Social History Do you use any recreational Drugs:: No Infectious screening In the last 2 months have you had wt loss of >10#?: NO Have you had fever, night sweats or hemotysis?: No Have you traveled outside the country in the last 6 months?: No Isolation: Standard PE Vital Signs Vitals: Temperature 98.8 F Pulse Rate 66 Respiratory Rate 21 Blood Pressure [Left Arm] 106/64 Blood Pressure [Right Arm] 113/57 Blood Pressure 131/57 O2 Sat by Pulse Oximetry 100 ROR Labs Reviewed Result Diagrams: 06/11/22 15:37 06/11/22 15:37 Laboratory: WBC 3.3 X10^3/uL (3.6-10.0) L 06/11/22 15:37 RBC 2.89 X10^6/uL (3.5-5.4) L 06/11/22 15:37 Hgb 9.5 g/dL (12.0-16.0) L 06/11/22 15:37 Hct 27.6 % (36.0-47.0) L 06/11/22 15:37 MCV 95.2 fL (80.0-100.0) 06/11/22 15:37 MCH 32.7 pg (27.0-34.0) 06/11/22 15:37 MCHC 34.4 g/dL (33.0-35.0) 06/11/22 15:37 RDW 13.5 % (11.6-16.5) 06/11/22 15:37 Plt Count 151 X10^3/uL (150.0-450.0) 06/11/22 15:37 MPV 9.0 fL (7.4-11.0) 06/11/22 15:37 Neut % (Auto) 88.7 % (42.0-75.0) H 06/11/22 15:37 Lymph % (Auto) 5.0 % (21.0-51.0) L 06/11/22 15:37 [place] % (Auto) 4.6 % (0.0-13.0) 06/11/22 15:37 Eos % (Auto) 0.4 % (0.9-2.9) L 06/11/22 15:37 Baso % (Auto) 1.3 % (0.2-1.0) H 06/11/22 15:37 Neut # (Auto) 2.9 x10^3/uL (2.2-4.8) 06/11/22 15:37 Lymph # (Auto) 0.2 X10^3/uL (1.3-2.9) L 06/11/22 15:37 [place] # (Auto) 0.2 x10^3/uL (0.3-0.8) L 06/11/22 15:37 Eos # (Auto) 0.0 x10^3/uL (0.0-0.2) 06/11/22 15:37 Baso # (Auto) 0.0 X10^3/uL (0.0-0.1) 06/11/22 15:37 Absolute Nucleated RBC 0.0 /100WBC 06/11/22 15:37 PT 18.4 SECONDS (11.8-14.3) 06/11/22 20:55 INR Target Range - 06/11/22 20:55 INR 1.59 (0.8-1.3) H 06/11/22 20:55 APTT 34.5 SECONDS (22.9-36.5) 06/11/22 20:55 PTT Comment - 06/11/22 20:55 Sodium 136 mmol/L (136-145) 06/11/22 15:37 Corrected Sodium 137 mmol/L (136-145) 06/11/22 15:37 Potassium 3.2 mmol/L (3.5-5.1) L 06/11/22 15:37 Chloride 105 mmol/L (98-107) 06/11/22 15:37 Carbon Dioxide 21.3 mmol/L (21-32) 06/11/22 15:37 BUN 26 mg/dL (7-18) H 06/11/22 15:37 Creatinine 1.85 mg/dL (0.55-1.02) H 06/11/22 15:37 Est GFR (MDRD) Af Amer 35 (>60) L 06/11/22 15:37 Est GFR (MDRD) Non-Af 29 (>60) L 06/11/22 15:37 Glucose 133 mg/dL (65-99) H 06/11/22 15:37 Calcium 7.7 mg/dL (8.5-10.1) L 06/11/22 15:37 Corrected Calcium 8.6 mg/dL (8.5-10.1) 06/11/22 15:37 Total Bilirubin 0.40 mg/dL (0.2-1.0) 06/11/22 15:37 AST 6488 Units/L (15-37) H 06/11/22 15:37 ALT 6333 Units/L (12-78) H 06/11/22 15:37 Alkaline Phosphatase 56 Units/L (46-116) 06/11/22 15:37 Ammonia 31 umol/L (11-32) 06/11/22 20:23 Creatine Kinase 87 Units/L (26-192) 06/11/22 15:37 Troponin I High Sens < 4.0 ng/L (4.0-60.0) L 06/11/22 15:37 B-Natriuretic Peptide 12.4 pg/mL (0-79) 06/11/22 15:37 Total Protein 5.8 g/dL (6.4-8.2) L 06/11/22 15:37 Albumin 2.9 g/dL (3.4-5.0) L 06/11/22 15:37 Globulin 2.9 g/dL (2.5-4.5) 06/11/22 15:37 Albumin/Globulin Ratio 1.0 Ratio (1.1-2.1) L 06/11/22 15:37 Acetaminophen 2.4 ug/mL (10-30) L 06/11/22 20:55 SARS-CoV-2 (PCR) Negative (NEGATIVE) 06/11/22 18:38 Influenza Type A (PCR) Negative (NEGATIVE) 06/11/22 18:38 Influenza Type B (PCR) Negative (NEGATIVE) 06/11/22 18:38 RSV (PCR) Negative (NEGATIVE) 06/11/22 18:38 S. pyogenes (TEM-PCR) Not detected (NOT DETECT) 06/11/22 18:38 Opioid Opioid Risk Tool Age (Vladimir box if 16-45): No History of Preadolescent Sexual Abuse: No Total: 0 Total Score Risk Category: Low Risk Copyright: Xavier CHRISTENSEN predicting aberrant behaviors Discharge Plan Diagnosis Discharge Problem: Acute hypotension, AMS (altered mental status), Elevated liver enzymes Discharge Plan Patient Disposition: 01 HOME, SELF-CARE Condition: Stable Orders to Discharge Patient Discharge Orders: Transfer (Routine); Ordered 06/11/22 Ordered By: LEDY HIGH
[2022-06-11 15:58] LABS: BASOPHILS % (AUTO) 1.3 % (0.2-1.0); EOSINOPHILS % (AUTO) 0.4 % (0.9-2.9); HEMATOCRIT 27.6 % (36.0-47.0); HEMOGLOBIN 9.5 g/dL (12.0-16.0); LYMPHOCYTES # (AUTO) 0.2 X10^3/uL (1.3-2.9); MEAN CORPUSCULAR HEMOGLOBIN 32.7 pg (27.0-34.0); MEAN CORPUSCULAR HGB CONC 34.4 g/dL (33.0-35.0); MEAN CORPUSCULAR VOLUME 95.2 fL (80.0-100.0); MONOCYTES # (AUTO) 0.2 x10^3/uL (0.3-0.8); MONOCYTES % (AUTO) 4.6 % (0.0-13.0); NEUTROPHILS # (AUTO) 2.9 x10^3/uL (2.2-4.8); NEUTROPHILS % (AUTO) 88.7 % (42.0-75.0); RED BLOOD COUNT 2.89 X10^6/uL (3.5-5.4); RED CELL DISTRIBUTION WIDTH 13.5 % (11.6-16.5); WHITE BLOOD COUNT 3.3 X10^3/uL (3.6-10.0)
[2022-06-11 16:04] LABS: ALKALINE PHOSPHATASE 56 Units/L (46-116); BLOOD UREA NITROGEN 26 mg/dL (7-18); CALCIUM 7.7 mg/dL (8.5-10.1); CHLORIDE 105 mmol/L (98-107)
--- NOTE | 2022-06-11 16:09 | CT ---
BRAIN W/O CONHistory: HYPOTENSION, AMSTechnique: CT images of the brain were obtained without contrast. Reformatted images in the coronal and sagittal planes also generated for review. Automatic exposure was utilized.Comparison: None availableFindings: The brain is normal in appearance for patient age. Hooker-white differentiation is maintained. No visible acute infarction is identified. There is no intracranial hemorrhage, extra-axial collection, hydrocephalus or mass. There is moderate mucosal thickening of the visualized paranasal sinuses. The mastoid air cells are clear. Imaged extracranial structures are grossly unremarkable.Impression:No acute intracranial abnormality.Moderate mucosal thickening of the paranasal sinuses. Correlate clinically for acute sinusitis.Electronically signed by: DEREK FOWLER (Jun 11, 2022 16:07:32)
--- NOTE | 2022-06-11 16:09 | RAD ---
HISTORYHYPOTENSION, AMS Relevant Clinical InformationSTUDYCHEST, 1 [id number] silhouette is normal in size. No focal infiltrate or significant effusion is identified. There is no pneumothorax.IMPRESSIONNo acute cardiopulmonary abnormality or significant change since prior.Electronically signed by: DEREK FOWLER (Jun 11, 2022 16:08:21)
[2022-06-11 16:40] LABS: ALBUMIN 2.9 g/dL (3.4-5.0); CARBON DIOXIDE 21.3 mmol/L (21-32); COR CA(FOR HYPOALB) 8.6 mg/dL (8.5-10.1); COR NA(FOR HYPERGLY) 137 mmol/L (136-145); CREATINE KINASE 87 Units/L (26-192); CREATININE 1.85 mg/dL (0.55-1.02); SODIUM 136 mmol/L (136-145); TOTAL PROTEIN 5.8 g/dL (6.4-8.2); eGFR NON BLACK RACES 29 (>60)
[2022-06-11 17:56] LABS: ALANINE AMINOTRANSFERASE 6333 Units/L (12-78); ASPARTATE AMINO TRANSFERASE 6488 Units/L (15-37)
[2022-06-11 19:10] LABS: STREP A BY PCR NOT DETECTED (NOT DETECT)
--- NOTE | 2022-06-11 20:04 | CT ---
HISTORYelevated liver enzymesSTUDYABDOMEN/PELVIS W/O CONCOMPARISONNone.TECHNIQUESerial axial images were obtained from the lung bases to the pubic symphysis without the administration of intravenous contrast. Soft tissue, lung windows and bone window images were interpreted. Dose reduction techniques were utilized.FINDINGSThe heart is not enlarged. There is atherosclerotic disease of the left anterior descending artery and left circumflex. The lung bases reveals linear subsegmental atelectasis of the left lung base and dependent subsegmental atelectasis of both lung bases with a minimal left pleural effusion.The liver is normal in size and reveals no focal lesions. There is no intrahepatic biliary ductal dilatation or obvious common bile duct dilatation. There are cholecystectomy clips in the gallbladder fossa.. The spleen is unremarkable, revealing no focal lesions. The pancreas and adrenal glands are unremarkable.The aorta and inferior vena cava are unremarkable. No significant para-aortic or retroperitoneal lymphadenopathy is identified.The kidneys reveal no renal, ureteric, or urinary bladder calculi. There is no hydronephrosis. There is no obstructive uropathy.Examination of the bowel, greater omentum and mesentery reveals induration of mesenteric, pelvic and omental fat with edema. This is of unclear etiology. The appendix is unremarkable with no evidence for acute appendicitis. Examination of the pelvis reveals no pathologic masses or fluid collections. The urinary bladder is unremarkable. There are pelvic phleboliths. There is also edema of the subcutaneous fat throughout the torso, more pronounced involving the breast tissues and ventral abdominal wall as well as the deep subcutaneous of the the duct lateral abdomen.At L4-5 there is a mild broad-based disc bulge and a mild to moderate central disc herniation L5-S1.IMPRESSIONSubcutaneous edema throughout the torso as well as edema throughout the mesenteric, omental and intra pelvic fat of unclear etiology. This is consistent with 3rd spacing.Electronically signed by: Keyonna Renae (Jun 11, 2022 20:02:03)
[2022-06-11 21:11] LABS: INR 1.59 (0.8-1.3)
[2022-06-11] MEDS: NS 1,000 ML IV 1,000 ML IV SCH (23:51)
[2022-06-12 00:28] VITALS: BMI 25.6
[2022-06-12 06:38] LABS: BASOPHILS % (AUTO) 0.9 % (0.2-1.0); EOSINOPHILS # (AUTO) 0.1 x10^3/uL (0.0-0.2); EOSINOPHILS % (AUTO) 2.6 % (0.9-2.9); HEMOGLOBIN 11.3 g/dL (12.0-16.0); LYMPHOCYTES # (AUTO) 0.5 X10^3/uL (1.3-2.9); LYMPHOCYTES % (AUTO) 15.5 % (21.0-51.0); MEAN CORPUSCULAR HEMOGLOBIN 32.9 pg (27.0-34.0); MEAN CORPUSCULAR HGB CONC 34.3 g/dL (33.0-35.0); MEAN CORPUSCULAR VOLUME 96.1 fL (80.0-100.0); MEAN PLATELET VOLUME 9.4 fL (7.4-11.0); MONOCYTES # (AUTO) 0.1 x10^3/uL (0.3-0.8); MONOCYTES % (AUTO) 3.6 % (0.0-13.0); NEUTROPHILS # (AUTO) 2.5 x10^3/uL (2.2-4.8); NEUTROPHILS % (AUTO) 77.4 % (42.0-75.0); RED BLOOD COUNT 3.43 X10^6/uL (3.5-5.4); RED CELL DISTRIBUTION WIDTH 13.6 % (11.6-16.5); WHITE BLOOD COUNT 3.2 X10^3/uL (3.6-10.0)
[2022-06-12 06:58] LABS: CARBON DIOXIDE 23.3 mmol/L (21-32); CHLORIDE 105 mmol/L (98-107); SODIUM 139 mmol/L (136-145)
[2022-06-12 07:31] LABS: BLOOD UREA NITROGEN 20 mg/dL (7-18); CALCIUM 8.3 mg/dL (8.5-10.1); CREATININE 0.99 mg/dL (0.55-1.02)
[2022-06-12 07:32] LABS: ALKALINE PHOSPHATASE 68 Units/L (46-116)
[2022-06-12 07:33] LABS: ALBUMIN 3.2 g/dL (3.4-5.0); COR CA(FOR HYPOALB) 8.9 mg/dL (8.5-10.1); MAGNESIUM 1.7 mg/dL (1.7-2.9); TOTAL PROTEIN 6.5 g/dL (6.4-8.2)
[2022-06-12 07:35] LABS: eGFR NON BLACK RACES 59 (>60)
[2022-06-12 07:37] LABS: ALANINE AMINOTRANSFERASE 6519 Units/L (12-78); ASPARTATE AMINO TRANSFERASE 5351 Units/L (15-37)
[2022-06-12] MEDS ORDERED: KLOR-CON PO PRN (07:51)
[2022-06-12] MEDS ORDERED: K-RIDER 10 MEQ/NS 100 ML 10 MEQ/100 ML BAG IV PRN (07:51)
[2022-06-12] MEDS ORDERED: POTASSIUM CHL 40 MEQ/NS 0.45% 500 ML IV PRN (07:51)
[2022-06-12] MEDS ORDERED: POTASSIUM CHLORIDE LIQ 20 MEQ UDC PO PRN (07:51)
[2022-06-12] MEDS ORDERED: MICRO K EXTEN CAP 10 MEQ PO PRN (07:51)
[2022-06-12] MEDS ORDERED: POTASSIUM CHL 60 MEQ/NS 0.45% 500 ML IV PRN (07:51)
[2022-06-12] MEDS: MAGNESIUM SULFATE 1 GRAM/100 mL PREMIX 1 G/100 ML BAG IV PRN ×2 (08:26→14:59)
[2022-06-12] MEDS: K-DUR TAB 20 MEQ PO PRN ×3 (08:28→18:30)
[2022-06-12] MEDS: PROVENTIL NEB TX 0.083% 2.5MG/ 3ML NEB PRN ×2 (08:50→20:10)
[2022-06-12] MEDS: PULMICORT NEB TX 0.5 MG NEB SCH ×2 (08:50→20:10)
[2022-06-12 11:20] LABS: BILIRUBIN,DIRECT 0.3 mg/dL (0-0.2); TOTAL PROTEIN 6.6 g/dL (6.4-8.2)
[2022-06-12 11:21] LABS: ALBUMIN 3.3 g/dL (3.4-5.0)
[2022-06-12] MEDS: TORADOL 30 MG VIAL IVP PRN ×3 (11:39→23:05)
[2022-06-12] MEDS: NS 1,000 ML IV 1,000 ML IV SCH (13:12)
--- NOTE | 2022-06-12 15:34 | DR.H&P ---
H&P History & Physical for Day of: H&P Date: 06/12/22 Chief Complaint Chief Complaint: Decreased responsiveness Allergies Allergies Allergy/AdvReac Type Severity Reaction Status Date / Time naproxen Allergy Verified 10/06/17 23:09 History of Present Illness History of Present Illness: This is a 66-year-old black female who was brought to the emergency department with some mild confusion and hypotension. Patient's blood pressure was in the 90s/70s coming to the hospital. She does report having history of hypertension that she did take her blood pressure meds today but she does not remember she took more than she should. She is a very poor historian and is slow to answer questions. Work-up in the emergency department last night revealed that she had elevated LFTs and CT scan of the abdomen and pelvis showed that she had subcutaneous edema throughout the abdomen and this was consistent with third spacing. Tylenol level was done and it was normal. Patient does have a history of anxiety, hyperlipidemia, depression, acid reflux and chronic pain. Patient's blood pressure is better today however but her LFTs remain elevated. We will go ahead and check her for hepatitis and if this is inconclusive we will refer to gastroenterology for further work-up. Past Medical History Past Medical History: Arthritis, COPD and Hypertension Past Surgical History Surgical History: Cholecystectomy, Hysterectomy and Ortho Surgery Family History Family Medical History: Diabetes Mellitus, Cancer, [place], Heart Failure and Hypertension Social History Does patient currently use any type of tobacco product: No Have you used tobacco products in the last 12 months: No Type of Tobacco Use: Cigarettes How many years tobacco product used: 50 Alcohol Use: None Drug Use: None Medications Home Medications: naproxen Allergy (Verified 10/06/17 23:09) CONTINUE taking the following medications albuterol sulfate 90 mcg/actuation aerosol inhaler 1 inh inhalation Q4H PRN 06/11/22 [History] atorvastatin 20 mg tablet 1 tab PO QDAY 06/11/22 [History] budesonide-formoterol HFA 160 mcg-4.5 mcg/actuation aerosol inhaler (Symbicort) 1 inh inhalation BID 06/11/22 [History] diclofenac sodium 1 % topical gel 1 applic topical QID 06/11/22 [History] gabapentin 600 mg tablet 1 tab PO TID 06/11/22 [History] hydrocodone 10 mg-acetaminophen 325 mg tablet 1 tab PO BID PRN 06/11/22 [History] lisinopril 20 mg tablet 1 tab PO BID 06/11/22 [History] tizanidine 4 mg tablet 2 tab PO BID 06/11/22 [History] tramadol 50 mg tablet 1 tab PO BID PRN 06/11/22 [History] Labs Result Diagrams: 06/12/22 05:21 06/12/22 10:32 Labs: Laboratory WBC 3.2 X10^3/uL (3.6-10.0) L 06/12/22 05:21 RBC 3.43 X10^6/uL (3.5-5.4) L 06/12/22 05:21 Hgb 11.3 g/dL (12.0-16.0) L 06/12/22 05:21 Hct 33.0 % (36.0-47.0) L 06/12/22 05:21 MCV 96.1 fL (80.0-100.0) 06/12/22 05:21 MCH 32.9 pg (27.0-34.0) 06/12/22 05:21 MCHC 34.3 g/dL (33.0-35.0) 06/12/22 05:21 RDW 13.6 % (11.6-16.5) 06/12/22 05:21 Plt Count 155 X10^3/uL (150.0-450.0) 06/12/22 05:21 MPV 9.4 fL (7.4-11.0) 06/12/22 05:21 Neut % (Auto) 77.4 % (42.0-75.0) H 06/12/22 05:21 Lymph % (Auto) 15.5 % (21.0-51.0) L 06/12/22 05:21 [place] % (Auto) 3.6 % (0.0-13.0) 06/12/22 05:21 Eos % (Auto) 2.6 % (0.9-2.9) 06/12/22 05:21 Baso % (Auto) 0.9 % (0.2-1.0) 06/12/22 05:21 Neut # (Auto) 2.5 x10^3/uL (2.2-4.8) 06/12/22 05:21 Lymph # (Auto) 0.5 X10^3/uL (1.3-2.9) L 06/12/22 05:21 [place] # (Auto) 0.1 x10^3/uL (0.3-0.8) L 06/12/22 05:21 Eos # (Auto) 0.1 x10^3/uL (0.0-0.2) 06/12/22 05:21 Baso # (Auto) 0.0 X10^3/uL (0.0-0.1) 06/12/22 05:21 Absolute Nucleated RBC 0.1 /100WBC 06/12/22 05:21 PT 18.4 SECONDS (11.8-14.3) 06/11/22 20:55 INR Target Range - 06/11/22 20:55 INR 1.59 (0.8-1.3) H 06/11/22 20:55 APTT 34.5 SECONDS (22.9-36.5) 06/11/22 20:55 PTT Comment - 06/11/22 20:55 Sodium 139 mmol/L (136-145) 06/12/22 05:21 Corrected Sodium TNP 06/12/22 05:21 Potassium 3.2 mmol/L (3.5-5.1) L 06/12/22 10:32 Chloride 105 mmol/L (98-107) 06/12/22 05:21 Carbon Dioxide 23.3 mmol/L (21-32) 06/12/22 05:21 BUN 20 mg/dL (7-18) H 06/12/22 05:21 Creatinine 0.99 mg/dL (0.55-1.02) 06/12/22 05:21 Est GFR (MDRD) Af Amer > 60 (>60) 06/12/22 05:21 Est GFR (MDRD) Non-Af 59 (>60) 06/12/22 05:21 Glucose 86 mg/dL (65-99) 06/12/22 05:21 Calcium 8.3 mg/dL (8.5-10.1) L 06/12/22 05:21 Corrected Calcium 8.9 mg/dL (8.5-10.1) 06/12/22 05:21 Magnesium 1.7 mg/dL (1.7-2.9) 06/12/22 05:21 Total Bilirubin 0.70 mg/dL (0.2-1.0) 06/12/22 10:32 Direct Bilirubin 0.30 mg/dL (0-0.2) H 06/12/22 10:32 Indirect Bilirubin 0.40 mg/dL (0.2-0.8) 06/12/22 10:32 AST 4599 Units/L (15-37) H 06/12/22 10:32 ALT 6269 Units/L (12-78) H 06/12/22 10:32 Alkaline Phosphatase 71 Units/L (46-116) 06/12/22 10:32 Ammonia 31 umol/L (11-32) 06/11/22 20:23 Creatine Kinase 87 Units/L (26-192) 06/11/22 15:37 Troponin I High Sens < 4.0 ng/L (4.0-60.0) L 06/11/22 15:37 B-Natriuretic Peptide 12.4 pg/mL (0-79) 06/11/22 15:37 Total Protein 6.6 g/dL (6.4-8.2) 06/12/22 10:32 Albumin 3.3 g/dL (3.4-5.0) L 06/12/22 10:32 Globulin 3.3 g/dL (2.5-4.5) 06/12/22 10:32 Albumin/Globulin Ratio 1.0 Ratio (1.1-2.1) L 06/12/22 10:32 Acetaminophen 2.4 ug/mL (10-30) L 06/11/22 20:55 SARS-CoV-2 (PCR) Negative (NEGATIVE) 06/11/22 18:38 Influenza Type A (PCR) Negative (NEGATIVE) 06/11/22 18:38 Influenza Type B (PCR) Negative (NEGATIVE) 06/11/22 18:38 RSV (PCR) Negative (NEGATIVE) 06/11/22 18:38 S. pyogenes (TEM-PCR) Not detected (NOT DETECT) 06/11/22 18:38 Review of Systems Constitutional: No Symptoms Reported Eyes: No Symptoms Reported ENT: No Symptoms Reported Respiratory: No Symptoms Reported Cardiovascular: No Symptoms Reported Gastrointestinal: No Symptoms Reported Genitourinary: No Symptoms Reported Musculoskeletal: No Symptoms Reported Skin: No Symptoms Reported Neurological: No Symptoms Reported Physical Exam Vital Signs: Temperature 99.8 F Pulse Rate [Brachial] 79 Pulse Rate 82 Respiratory Rate 20 Blood Pressure [Left Arm] 140/65 Blood Pressure [Right Arm] 113/57 Blood Pressure 136/59 O2 Sat by Pulse Oximetry 100 Oriented: Normal Eyes: Normal Ear: Normal Nose: Normal Throat: Normal Respiratory: Clear Throughout Cardiovascular: Normal : Normal Auscultation: Bowel Sounds: Normal Palpation: Normal Tenderness: RUQ Skin: Normal Musculoskeletal: Normal Psychiatric: Normal Mood Description: Calm Affect: Normal Speech Pattern: Clear Assessment/Plan (1) Hypokalemia: Status: Acute Plan: Potassium replacement protocol to replace low potassium. (2) Abnormal LFTs: Status: Acute Plan: Check hepatitis panel. (3) Hypertension: Status: Chronic Plan: Monitor blood pressure daily. (4) Anxiety: Status: Chronic (5) Hypotension: Status: Resolved Plan: We will resume home blood pressure medicines when patient's blood pressure becomes elevated again.
[2022-06-12 17:54] LABS: BILIRUBIN,URINE NEGATIVE (NEGATIVE); BLOOD/HEMOGLOBIN,URINE 1+ (NEGATIVE); GLUCOSE, URINE NEGATIVE (NEGATIVE); KETONES,URINE 1+ (NEGATIVE); LEUKOCYTE ESTERASE ,URINE NEGATIVE (NEGATIVE); NITRITES,URINE NEGATIVE (NEGATIVE); PH,URINE 6.5 (5.0 - 8.0); PROTEIN,URINE 3+ (NEGATIVE); UROBILINOGEN,URINE 2+ (NORMAL)
[2022-06-12 18:00] LABS: APPEARANCE,URINE CLEAR (CLEAR); COLOR,URINE YELLOW (YELLOW)
[2022-06-12 18:01] LABS: BACTERIA,URINE NEGATIVE /HPF (NEGATIVE); RBC,URINE 0-2 /HPF (0-3); SQUAMOUS EPITHELIAL CELL,UR RARE /HPF (NEGATIVE)
[2022-06-13] MEDS: NS 1,000 ML IV 1,000 ML IV SCH ×3 (01:30→20:54)
[2022-06-13 05:21] LABS: BASOPHILS % (AUTO) 1.6 % (0.2-1.0); EOSINOPHILS # (AUTO) 0.2 x10^3/uL (0.0-0.2); EOSINOPHILS % (AUTO) 9.8 % (0.9-2.9); HEMATOCRIT 31.6 % (36.0-47.0); MEAN CORPUSCULAR HEMOGLOBIN 32.8 pg (27.0-34.0); MEAN CORPUSCULAR HGB CONC 34.8 g/dL (33.0-35.0); MEAN CORPUSCULAR VOLUME 94.2 fL (80.0-100.0); MEAN PLATELET VOLUME 9.1 fL (7.4-11.0); MONOCYTES # (AUTO) 0.2 x10^3/uL (0.3-0.8); MONOCYTES % (AUTO) 6.9 % (0.0-13.0); NEUTROPHILS # (AUTO) 0.8 x10^3/uL (2.2-4.8); NEUTROPHILS % (AUTO) 36.7 % (42.0-75.0); RED BLOOD COUNT 3.35 X10^6/uL (3.5-5.4); RED CELL DISTRIBUTION WIDTH 13.6 % (11.6-16.5); WHITE BLOOD COUNT 2.3 X10^3/uL (3.6-10.0)
[2022-06-13 05:45] LABS: PLATELET MORPHOLOGY COMMENT NORMAL (NORMAL)
[2022-06-13 05:47] LABS: ALBUMIN 2.9 g/dL (3.4-5.0); ALKALINE PHOSPHATASE 64 Units/L (46-116); BLOOD UREA NITROGEN 12 mg/dL (7-18); CALCIUM 8.1 mg/dL (8.5-10.1); CARBON DIOXIDE 21.5 mmol/L (21-32); CHLORIDE 109 mmol/L (98-107); CREATININE 0.71 mg/dL (0.55-1.02); SODIUM 140 mmol/L (136-145); TOTAL PROTEIN 6.2 g/dL (6.4-8.2); eGFR NON BLACK RACES > 60 (>60)
[2022-06-13 06:06] LABS: ALANINE AMINOTRANSFERASE 4055 Units/L (12-78); ASPARTATE AMINO TRANSFERASE 2176 Units/L (15-37)
[2022-06-13] MEDS: K-DUR TAB 20 MEQ PO PRN (06:19)
[2022-06-13] MEDS: PULMICORT NEB TX 0.5 MG NEB SCH ×2 (08:10→20:51)
[2022-06-13] MEDS: PROVENTIL NEB TX 0.083% 2.5MG/ 3ML NEB PRN ×2 (08:10→20:51)
[2022-06-13] MEDS: LOVENOX INJ 40 MG SYR SC SCH (08:47)
[2022-06-13] MEDS: TORADOL 30 MG VIAL IVP PRN (08:55)
[2022-06-13] MEDS ORDERED: ULTRAM PO PRN (12:16)
--- NOTE | 2022-06-13 12:16 | PCM.PROG ---
Progress Note Progress Note for Day of Date of Exam: 06/13/22 Subjective Subjective: The patient reports feeling little better this morning. She does report some pain which is mild in the left upper quadrant. It is noted her blood pressure is elevated today at noon at 183/78. I see that she takes lisinopril and we will restart that today. I will also consult gastroenterology regarding her elevated liver function test to see what else they want to order to work this up. They are coming down since admission but do remain elevated. Possible discharge home next 1 to 2 days after her LFTs continue to come down and she is pain-free and abdomen. Past Medical Family Social History Allergies: Allergies naproxen Allergy (Verified 10/06/17 23:09) Vital Signs and I&O's Vital Signs: Temperature 98.6 F Pulse Rate [Brachial] 66 Pulse Rate 92 Respiratory Rate 20 Blood Pressure [Left Arm] 175/71 Blood Pressure [Right Arm] 183/78 Blood Pressure 136/59 O2 Sat by Pulse Oximetry 96 Intake and Output: Intake & Output 06/11/22 06/12/22 06/13/22 06/14/22 11:59 11:59 11:59 11:59 Intake Total 157 / 157 1704 / 1704 Output Total 400 / 400 Balance 157 / 157 1304 / 1304 Physical Exam Oriented: Normal Eyes: Normal Ear: Normal Nose: Normal Throat: Normal Cardiovascular: Normal : Normal Auscultation: Bowel Sounds: Normal Tenderness: RUQ Skin: Normal Musculoskeletal: Normal Psychiatric: Normal Mood Description: Calm Affect: Normal Speech Pattern: Clear Laboratory and Diagnostics Result Diagrams: 06/13/22 04:50 06/13/22 04:50 Labs: Laboratory WBC 2.3 X10^3/uL (3.6-10.0) L 06/13/22 04:50 RBC 3.35 X10^6/uL (3.5-5.4) L 06/13/22 04:50 Hgb 11.0 g/dL (12.0-16.0) L 06/13/22 04:50 Hct 31.6 % (36.0-47.0) L 06/13/22 04:50 MCV 94.2 fL (80.0-100.0) 06/13/22 04:50 MCH 32.8 pg (27.0-34.0) 06/13/22 04:50 MCHC 34.8 g/dL (33.0-35.0) 06/13/22 04:50 RDW 13.6 % (11.6-16.5) 06/13/22 04:50 Plt Count 171 X10^3/uL (150.0-450.0) 06/13/22 04:50 Plt Count Comment Adequate (ADEQUATE) 06/13/22 04:50 MPV 9.1 fL (7.4-11.0) 06/13/22 04:50 Neut % (Auto) 36.7 % (42.0-75.0) L 06/13/22 04:50 Lymph % (Auto) 45.0 % (21.0-51.0) 06/13/22 04:50 [place] % (Auto) 6.9 % (0.0-13.0) 06/13/22 04:50 Eos % (Auto) 9.8 % (0.9-2.9) H 06/13/22 04:50 Baso % (Auto) 1.6 % (0.2-1.0) H 06/13/22 04:50 Neut # (Auto) 0.8 x10^3/uL (2.2-4.8) L 06/13/22 04:50 Lymph # (Auto) 1.0 X10^3/uL (1.3-2.9) L 06/13/22 04:50 [place] # (Auto) 0.2 x10^3/uL (0.3-0.8) L 06/13/22 04:50 Eos # (Auto) 0.2 x10^3/uL (0.0-0.2) 06/13/22 04:50 Baso # (Auto) 0.0 X10^3/uL (0.0-0.1) 06/13/22 04:50 Absolute Nucleated RBC 0.2 /100WBC 06/13/22 04:50 Total Counted 50 06/13/22 04:50 Neutrophils % (Manual) 42 % (39-76) 06/13/22 04:50 Lymphocytes % (Manual) 46 % (13-43) H 06/13/22 04:50 Monocytes % (Manual) 4 % (4-9) 06/13/22 04:50 Eosinophils % (Manual) 8 % (0-6) H 06/13/22 04:50 Plt Morphology Comment Normal (NORMAL) 06/13/22 04:50 RBC Morphology Normal (NORMAL) 06/13/22 04:50 PT 18.4 SECONDS (11.8-14.3) 06/11/22 20:55 INR Target Range - 06/11/22 20:55 INR 1.59 (0.8-1.3) H 06/11/22 20:55 APTT 34.5 SECONDS (22.9-36.5) 06/11/22 20:55 PTT Comment - 06/11/22 20:55 Sodium 140 mmol/L (136-145) 06/13/22 04:50 Corrected Sodium TNP 06/13/22 04:50 Potassium 3.7 mmol/L (3.5-5.1) 06/13/22 04:50 Chloride 109 mmol/L (98-107) H 06/13/22 04:50 Carbon Dioxide 21.5 mmol/L (21-32) 06/13/22 04:50 BUN 12 mg/dL (7-18) 06/13/22 04:50 Creatinine 0.71 mg/dL (0.55-1.02) 06/13/22 04:50 Est GFR (MDRD) Af Amer > 60 (>60) 06/13/22 04:50 Est GFR (MDRD) Non-Af > 60 (>60) 06/13/22 04:50 Glucose 107 mg/dL (65-99) H 06/13/22 04:50 Calcium 8.1 mg/dL (8.5-10.1) L 06/13/22 04:50 Corrected Calcium 9.0 mg/dL (8.5-10.1) 06/13/22 04:50 Magnesium 2.0 mg/dL (1.7-2.9) 06/13/22 04:50 Total Bilirubin 0.60 mg/dL (0.2-1.0) 06/13/22 04:50 Direct Bilirubin 0.30 mg/dL (0-0.2) H 06/12/22 10:32 Indirect Bilirubin 0.40 mg/dL (0.2-0.8) 06/12/22 10:32 AST 2176 Units/L (15-37) H 06/13/22 04:50 ALT 4055 Units/L (12-78) H 06/13/22 04:50 Alkaline Phosphatase 64 Units/L (46-116) 06/13/22 04:50 Ammonia 31 umol/L (11-32) 06/11/22 20:23 Creatine Kinase 87 Units/L (26-192) 06/11/22 15:37 Troponin I High Sens < 4.0 ng/L (4.0-60.0) L 06/11/22 15:37 B-Natriuretic Peptide 12.4 pg/mL (0-79) 06/11/22 15:37 Total Protein 6.2 g/dL (6.4-8.2) L 06/13/22 04:50 Albumin 2.9 g/dL (3.4-5.0) L 06/13/22 04:50 Globulin 3.3 g/dL (2.5-4.5) 06/13/22 04:50 Albumin/Globulin Ratio 0.9 Ratio (1.1-2.1) L 06/13/22 04:50 Specimen Type Clean catch urine 06/12/22 17:30 Urine Color Yellow (YELLOW) 06/12/22 17:30 Urine Appearance Clear (CLEAR) 06/12/22 17:30 Urine pH 6.5 (5.0 - 8.0) 06/12/22 17:30 Ur Specific [place] 1.020 (1.000-1.030) 06/12/22 17:30 Urine Protein 3+ (NEGATIVE) 06/12/22 17:30 Urine Glucose (UA) Negative (NEGATIVE) 06/12/22 17:30 Urine Ketones 1+ (NEGATIVE) 06/12/22 17:30 Urine Blood 1+ (NEGATIVE) 06/12/22 17:30 Urine Nitrite Negative (NEGATIVE) 06/12/22 17:30 Urine Bilirubin Negative (NEGATIVE) 06/12/22 17:30 Urine Urobilinogen 2+ (NORMAL) 06/12/22 17:30 Ur Leukocyte Esterase Negative (NEGATIVE) 06/12/22 17:30 Urine RBC 0-2 /HPF (0-3) 06/12/22 17:30 Urine WBC 0-2 /HPF (0-5) 06/12/22 17:30 Ur Squamous Epith Cells Rare /HPF (NEGATIVE) 06/12/22 17:30 Urine Bacteria Negative /HPF (NEGATIVE) 06/12/22 17:30 Urine Mucus Rare /HPF (NEGATIVE) 06/12/22 17:30 Ur Culture Indicated? No/not indicated 06/12/22 17:30 Acetaminophen 2.4 ug/mL (10-30) L 06/11/22 20:55 SARS-CoV-2 (PCR) Negative (NEGATIVE) 06/11/22 18:38 Influenza Type A (PCR) Negative (NEGATIVE) 06/11/22 18:38 Influenza Type B (PCR) Negative (NEGATIVE) 06/11/22 18:38 RSV (PCR) Negative (NEGATIVE) 06/11/22 18:38 S. pyogenes (TEM-PCR) Not detected (NOT DETECT) 06/11/22 18:38 Plan (1) Hypokalemia: Status: Resolved Plan: Potassium replacement protocol to replace low potassium. (2) Abnormal LFTs: Status: Acute Plan: Follow-up hepatitis panel. Consult gastroenterology for further e valuation and treatment of her elevated LFTs. (3) Hypertension: Status: Chronic Plan: Start lisinopril 20 mg p.o. daily. (4) Anxiety: Status: Chronic (5) Hypotension: Status: Resolved Plan: We will resume home blood pressure medicines when patient's blood pressure becomes elevated again.
[2022-06-13] MEDS: NEURONTIN TAB 600 MG PO SCH ×2 (13:22→21:00)
[2022-06-13] MEDS ORDERED: ZESTRIL TAB 20 MG ONE (20:36)
[2022-06-13] MEDS: ZESTRIL TAB 20 MG PO SCH (20:55)
[2022-06-13] MEDS ORDERED: PATIENT'S HOME MEDICATION (Budesonide-Formoterol [Symbicort] 160-4.5 mcg/actuation HFA aer IN SCH (21:00)
[2022-06-14] MEDS: NEURONTIN TAB 600 MG PO SCH (05:09)
[2022-06-14] MEDS: NS 1,000 ML IV 1,000 ML IV SCH (05:09)
[2022-06-14 05:13] LABS: BASOPHILS % (AUTO) 1.1 % (0.2-1.0); EOSINOPHILS # (AUTO) 0.4 x10^3/uL (0.0-0.2); EOSINOPHILS % (AUTO) 13.3 % (0.9-2.9); HEMATOCRIT 31.7 % (36.0-47.0); HEMOGLOBIN 10.9 g/dL (12.0-16.0); LYMPHOCYTES # (AUTO) 2.1 X10^3/uL (1.3-2.9); LYMPHOCYTES % (AUTO) 63.4 % (21.0-51.0); MEAN CORPUSCULAR HEMOGLOBIN 32.5 pg (27.0-34.0); MEAN CORPUSCULAR HGB CONC 34.4 g/dL (33.0-35.0); MEAN CORPUSCULAR VOLUME 94.4 fL (80.0-100.0); MEAN PLATELET VOLUME 8.9 fL (7.4-11.0); MONOCYTES # (AUTO) 0.3 x10^3/uL (0.3-0.8); MONOCYTES % (AUTO) 9.5 % (0.0-13.0); NEUTROPHILS # (AUTO) 0.4 x10^3/uL (2.2-4.8); NEUTROPHILS % (AUTO) 12.7 % (42.0-75.0); RED BLOOD COUNT 3.36 X10^6/uL (3.5-5.4); WHITE BLOOD COUNT 3.3 X10^3/uL (3.6-10.0)
[2022-06-14 05:35] LABS: ALBUMIN 2.8 g/dL (3.4-5.0); ALKALINE PHOSPHATASE 62 Units/L (46-116); ASPARTATE AMINO TRANSFERASE 870 Units/L (15-37); BLOOD UREA NITROGEN 5 mg/dL (7-18); CALCIUM 8.1 mg/dL (8.5-10.1); CHLORIDE 110 mmol/L (98-107); COR CA(FOR HYPOALB) 9.1 mg/dL (8.5-10.1); CREATININE 0.63 mg/dL (0.55-1.02); SODIUM 142 mmol/L (136-145); TOTAL PROTEIN 6.1 g/dL (6.4-8.2); eGFR NON BLACK RACES > 60 (>60)
[2022-06-14 05:40] LABS: ALANINE AMINOTRANSFERASE 3064 Units/L (12-78)
[2022-06-14 05:42] LABS: PLATELET MORPHOLOGY COMMENT NORMAL (NORMAL)
[2022-06-14] MEDS: K-DUR TAB 20 MEQ PO PRN (05:48)
[2022-06-14] MEDS ORDERED: ZESTRIL TAB 20 MG ONE (08:09)
[2022-06-14] MEDS: ZESTRIL TAB 20 MG PO SCH (08:13)
[2022-06-14] MEDS: LOVENOX INJ 40 MG SYR SC SCH (08:13)
[2022-06-14] MEDS: PULMICORT NEB TX 0.5 MG NEB SCH (08:30)
--- NOTE | 2022-06-14 11:42 | DR.CONSULT ---
Consult - Consultation for Day of: Date: 06/14/22 - Chief Complaint Chief Complaint: Elevated LFTs - History of Present Illness History of Present Illness: Pt is a 66 y/o who is referred for elevated LFTs. Pt has complaints of dyspepsia and epigastric pain. Denies dysphagia, N/V, diarrhea, constipation, melena, and hematochezia. Last EGD 3-5 years ago, per pt. No previous colon reported. Pt not currently on PPI/H2 andrez. Denies NSAID use. Pt was brought to the emergency department with some mild confusion and hypotension. Patient's blood pressure was in the 90s/70s coming to the hospital. She does report having history of hypertension that she did take her blood pressure meds today but she does not remember she took more than she should. She is a very poor historian and is slow to answer questions. Work-up in the emergency department last night revealed that she had elevated LFTs and CT scan of the abdomen and pelvis showed that she had subcutaneous edema throughout the abdomen and this was consistent with third spacing. Tylenol level was done and it was normal. Patient does have a history of anxiety, hyperlipidemia, depression, acid reflux and chronic pain. Patient's blood pressure is better today however but her LFTs remain elevated. - Past Medical History Past Medical History: Hypertension, COPD, Arthritis - Past Surgical History Surgical History: Cholecystectomy, Hysterectomy, Ortho Surgery - Family History Family Medical History: Diabetes Mellitus, Cancer, [place], Heart Failure, Hypertension - Social History Does patient currently use any type of tobacco product: No Have you used tobacco products in the last 12 months: No Type of Tobacco Use: Cigarettes How many years tobacco product used: 50 Alcohol Use: None Drug Use: None - Medications Home Medications: naproxen Allergy (Verified 10/06/17 23:09) CONTINUE taking the following medications albuterol sulfate 90 mcg/actuation aerosol inhaler 1 inh inhalation Q4H PRN 06/11/22 [History] atorvastatin 20 mg tablet 1 tab PO QDAY 06/11/22 [History] budesonide-formoterol HFA 160 mcg-4.5 mcg/actuation aerosol inhaler (Symbicort) 1 inh inhalation BID 06/11/22 [History] diclofenac sodium 1 % topical gel 1 applic topical QID 06/11/22 [History] gabapentin 600 mg tablet 1 tab PO TID 06/11/22 [History] hydrocodone 10 mg-acetaminophen 325 mg tablet 1 tab PO BID PRN 06/11/22 [History] lisinopril 20 mg tablet 1 tab PO BID 06/11/22 [History] tizanidine 4 mg tablet 2 tab PO BID 06/11/22 [History] tramadol 50 mg tablet 1 tab PO BID PRN 06/11/22 [History] - Review of Systems Constitutional: No Symptoms Reported. denies: See HPI, Fever, Chills, Sweats, Weakness, Malaise, Other Eyes: No Symptoms Reported. denies: See HPI, Pain, Vision Change, Conjunctivae Inflammation, Eyelid Inflammation, Redness, Other ENT: No Symptoms Reported. denies: See HPI, Ear Pain, Ear Discharge, Nose Pain, Nose Discharge, Nose Congestion, Mouth Pain, Mouth Swelling, Throat Pain, Throat Swelling, Other Respiratory: No Symptoms Reported. denies: See HPI, Cough, Dry, Shortness of Breath, Hemoptysis, SOB with Excertion, Pleuritic Pain, Sputum, Wheezing, Other Cardiovascular: No Symptoms Reported. denies: Chest Pain, See HPI, Palpitations, Orthopnea, Paroxysmal Noc. Dyspnea, Edema, Light Headedness, Other Gastrointestinal: Abdominal Pain (Epigastric), Other (GERD). denies: No Symptoms Reported, See HPI, Nausea, Vomiting, Diarrhea, Constipation, Melena, Hematochezia Genitourinary: No Symptoms Reported. denies: See HPI, Dysuria, Frequency, Incontinence, Hematuria, Retention, Other Musculoskeletal: No Symptoms Reported. denies: See HPI, Shoulder Pain, Arm Pain, Back Pain, Hand Pain, Leg Pain, Foot Pain, Neck Pain, Other Skin: No Symptoms Reported. denies: See HPI, Rash, Lesions, Jaundice, Bruising, Wound, Ecchymosis, Other Neurological: No Symptoms Reported. denies: See HPI, Weakness, Numbness, Incoordination, Change in Speech, Confusion, Seizures, Other - Physical Exam Vital Signs: Temperature 98.6 F Pulse Rate [Brachial] 72 Pulse Rate 68 Respiratory Rate 18 Blood Pressure [Left Arm] 158/72 Blood Pressure [Right Arm] 136/62 Blood Pressure 136/59 O2 Sat by Pulse Oximetry 98 Oriented: Normal Eyes: negative: Normal, Blurred Vision, Diplopia, Discharge, Pain, Redness, Photophobia, Other Ear: negative: Normal, Right, Left, Swelling, Ecchymosis, Hemotypanum, Abrasion, Laceration Nose: negative: Normal, Injected, Discharge, Blood, Other Throat: negative: Normal, Tonsillar Hypertrophy, Red, Exudate, Dry, Other Respiratory: Clear Throughout. negative: Diminished Throughout, Rhonchi Throughout, Rales Throughout, Wheezes Throughout, RUL Clear, RML Clear, RLL Clear, EFRAÍN Clear, LML Clear, LLL Clear, RUL Diminished, RML Diminished, RLL Diminished, EFRAÍN Diminished, LML Diminished, LLL Diminished, RUL Absent, RML Absent, RLL Absent, EFRAÍN Absent, LML Absent, LLL Absent, RUL Rhonchi, RML Rhonchi, RLL Rhonchi, EFRAÍN Rhonchi, LML Rhonchi, LLL Rhonchi, RUL Insp. Wheeze, RML Insp. Wheeze, RLL Insp. Wheeze, EFRAÍN Insp.Wheeze, LML Insp.Wheeze, LLL Insp.Wheeze, RUL Exp. Wheeze, RML Exp. Wheeze, RLL Exp. Wheeze, EFRAÍN Exp. Wheeze, LML Exp. Wheeze, LLL Exp. Wheeze, RUL Rales, RML Rales, RLL Rales, EFRAÍN Rales, LML Rales, LLL Rales, RUL Rub, RML Rub, RLL Rub, EFRAÍN Rub, LML Rub, LLL Rub, RUL Squeak, RML Squeak, RLL Squeak, EFRAÍN Squeak, LML Squeak, LLL Squeak Cardiovascular: Normal. negative: Tachycardia, Bradycardia, Irregular, S3, S4, Systolic, Diastolic, Murmur, Edema, Other : Normal. negative: Dysuria, Hematuria, Frequency, Discharge, Testicular Pain, Bleeding, , Other Auscultation: Bowel Sounds: Normal. negative: Bruit, Absent, Increased, Decreased, High Pitched, Other Palpation: Normal. negative: Spleen Enlarged, Liver Enlarged, Mass Pulsatile, Other Tenderness: Epigastric. negative: Normal, Diffuse, RUQ, RLQ, LUQ, LLQ, Periumbilical, Suprapubic, Mild, Moderate, Severe, Rebound, Guarding, Rigidity, Other Skin: Normal. negative: Decreased Turgur, Rash, Papular, Macular, Maculopapular, Vesicular, Pustular, Petechial, Red, Tender, Hot, Diaphoresis, Wound, Bruising, Ecchymosis, Other Musculoskeletal: Normal. negative: Right, Left, Shoulder, Clavicle, Arm, Elbow, Forearm, Wrist, Hand, Hip, Thigh, Knee, Leg, Ankle, Foot, Back:Thoracic, Back:Lumbar, Back:Midline, Back:Paraspinous, Pelvis, Swelling, Tender, Deformity, Pulse Deficit, Motor Deficit, Sensory Deficit, Instability, Crepitance Psychiatric: Normal. negative: Anxiety, Depression, Agitation, Other Mood Description: Calm. negative: Angry, Apathetic, Depressed, Fearful, Flat, Happy, Hostile, Sad, Suspicious, Withdrawn, Anxious, Appropriate, Labile Affect: negative: Angry, Anxious, Depressed, Flat, Hysterical, Quiet, Violent, Normal Speech Pattern: Clear, Appropriate. negative: Unclear, Inappropriate, Delayed, Slurred, Excessive, Aphasic, Artificially Ventilated, Trach(not ventilated) - Plan Plan: Assessment. 1. Abnormal LFTs. 2. GERD, epigastric pain. Plan: Liver workup. Pt will need to F/U in office 2-3 weeks after discharge. Plan D/W Dr. Montes De Oca - Allergies Allergies/Adverse Reactions: Allergies Allergy/AdvReac Type Severity Reaction Status Date / Time naproxen Allergy Verified 10/06/17 23:09
[2022-06-14 12:14] VITALS: BP 161/69
[2022-06-14 12:31] LABS: IRON 87 ug/dL (50-175)
[2022-06-15 07:04] LABS: HEPATITIS B SURFACE ANTIGEN Negative (Negative)
[2022-06-18 11:00] LABS: ANTI-NUCLEAR ANTIBODY TEST None Detected (None Detected)
== END 2022-06-14 13:25 | disposition home health service (06) | DRG 316 ==
LOC: ER 15:04 → MED/SURG 22:22
PROVIDERS: ADMIT Family Medicine; ATTEND Family Medicine
DX: E87.6 Hypokalemia; R94.31 Abnormal electrocardiogram [ECG] [EKG]; R41.82 Altered mental status, unspecified; I95.89 Other hypotension; R10.13 Epigastric pain; I10 Essential (primary) hypertension; J44.9 Chronic obstructive pulmonary disease, unspecified; R94.5 Abnormal results of liver function studies; F41.8 Other specified anxiety disorders; R60.0 Localized edema; Z20.822 Contact with and (suspected) exposure to COVID-19